=== PATIENT | female | born 1945 | race Two or more races ===

== ENCOUNTER 2017-09-13 11:18 | Inpatient (IN) | payer MEDICARE, MEDICAID ==
[~2017-09-13] VITALS: Ht 134.6 cm; Wt 61.2 kg
[2017-09-13] MEDS ORDERED: SODIUM CHLORIDE 0.9% 250 ML IV ONE (11:45)
[2017-09-13 12:40] LABS: CHLORIDE 98 mEq/L (98-107)
[2017-09-13 12:42] LABS: INR 1.4; PROTHROMBIN TIME 14.8 sec (9.4-11.6)
[2017-09-13 12:43] LABS: BASOPHILS % 0.2 % (0.0-2.0); EOSINOPHILS % 0.1 % (0.0-5.0); HEMOGLOBIN. 9.9 g/dL (12.0-16.0); LYMPHOCYTES % 10.4 % (20.0-50.0); MEAN CORPUSCULAR VOLUME 97.3 fL (81.0-99.0); MEAN PLATELET VOLUME 8.5 fl (7.4-10.4); MONOCYTES % 3.9 % (2.0-8.0); NEUTROPHILS % 85.4 % (40.0-76.0); PLATELET 193 x1000/uL (130-400); RED BLOOD CELL COUNT 3.09 mill/uL (4.2-5.4); RED CELL DISTRIBUTION WIDTH 18.2 % (11.6-14.6)
[2017-09-13] MEDS ORDERED: ACETAMINOPHEN WITH CODEINE 300/30MG TABLET PO ONE (13:45)
[2017-09-13] MEDS: SODIUM CHLORIDE 0.45% 1,000 ML IV SCH ×2 (16:08→18:26)
[2017-09-13 16:40] VITALS: BP 83/50
[2017-09-13 16:55] VITALS: BP 83/50
[2017-09-13] MEDS ORDERED: CLONIDINE 0.1MG TABLET PO PRN (17:45)
[2017-09-13] MEDS ORDERED: ACETAMINOPHEN 650MG SUPP PR PRN (17:45)
[2017-09-13] MEDS ORDERED: ACETAMINOPHEN 650MG/20.3ML UDC GT PRN (17:45)
[2017-09-13] MEDS ORDERED: DIPHENHYDRAMINE 50MG/ML VIAL IV PRN (17:45)
[2017-09-13] MEDS ORDERED: GUAIFENESIN 200MG/10ML SUGAR FREE UDC PO PRN (17:45)
[2017-09-13] MEDS ORDERED: IPRATROPIUM/ALBUTEROL 0.5-3(2.5)MG/3ML NEB INH PRN (17:45)
[2017-09-13] MEDS ORDERED: MAGNESIUM/ALUMINUM HYDROXIDE/SIMETHICONE 30ML UDC PO PRN (17:45)
[2017-09-13] MEDS: ENOXAPARIN 30MG/0.3ML SYR SUBCUT SCH (18:22)
[2017-09-13 20:00] VITALS: BP 103/43
[2017-09-13] MEDS: BLOOD SUGAR DIAGNOSTIC STRIP TEST SCH (21:00)
[2017-09-13] MEDS ORDERED: NA PHOS,M-B/NA PHOS,DI-BA ENEMA 118ML PR PRN (21:00)
[2017-09-13] MEDS ORDERED: DEXTROSE 50% WATER 50ML SYRINGE IV PRN (21:00)
[2017-09-13] MEDS: SODIUM CHLORIDE 0.9% INJ 3ML FLUSH IVF SCH (22:03)
[2017-09-13] MEDS: INSULIN LISPRO 100 UNITS/ML SUBCUT SCH (22:29)
[2017-09-13] MEDS ORDERED: ALBUMIN HUMAN 25GM/100ML (25%) IV NR (22:30)
[2017-09-14] VITALS: BP 114/43
[2017-09-14] MEDS ORDERED: VANCOMYCIN 1 G PREMIX 200 ML IV SCH
[2017-09-14] MEDS: PIPERACILLIN/TAZ 2.25G PREMIX 50 ML IV SCH ×4 (00:05→23:57)
[2017-09-14] MEDS: ACETAMINOPHEN 325MG TABLET PO PRN ×3 (00:35→23:57)
[2017-09-14 01:52] LABS: CREATINE KINASE MB FRACTION 1.2 ng/mL (0.5-3.6)
[2017-09-14 04:00] VITALS: BP_SYST 100; BP_SYST 116; BP_DIAS 43; BP_DIAS 56
[2017-09-14] MEDS: SODIUM CHLORIDE 0.9% INJ 3ML FLUSH IVF SCH ×3 (05:46→21:21)
[2017-09-14] MEDS: INSULIN LISPRO 100 UNITS/ML SUBCUT SCH ×4 (07:47→21:00)
[2017-09-14] MEDS: BLOOD SUGAR DIAGNOSTIC STRIP TEST SCH ×4 (07:47→21:21)
[2017-09-14 07:49] LABS: BASOPHILS % 0.4 % (0.0-2.0); EOSINOPHILS % 0.3 % (0.0-5.0); HEMATOCRIT. 27.1 % (36.0-48.0); HEMOGLOBIN. 9.1 g/dL (12.0-16.0); LYMPHOCYTES % 17.1 % (20.0-50.0); MEAN CORPUSCULAR HEMOGLOBIN 32.5 pg (28.0-32.0); MEAN PLATELET VOLUME 8.5 fl (7.4-10.4); MONOCYTES % 3.9 % (2.0-8.0); NEUTROPHILS % 78.3 % (40.0-76.0); PLATELET 203 x1000/uL (130-400); RED BLOOD CELL COUNT 2.79 mill/uL (4.2-5.4); RED CELL DISTRIBUTION WIDTH 18.3 % (11.6-14.6)
[2017-09-14 08:00] VITALS: BP 162/43
[2017-09-14 12:00] VITALS: BP 110/77
[2017-09-14 12:02] LABS: CHLORIDE 98 mEq/L (98-107)
[2017-09-14 12:12] LABS: CREATINE KINASE MB FRACTION 1.3 ng/mL (0.5-3.6)
[2017-09-14 12:15] LABS: LDL CHOLESTEROL 25 mg/dL (5-100)
[2017-09-14 12:16] LABS: CREATINE KINASE 23 IU/L (26-192)
[2017-09-14 12:17] LABS: HDL CHOLESTEROL 20 mg/dL (40-59)
[2017-09-14 16:00] VITALS: BP 113/56
[2017-09-14] MEDS: ENOXAPARIN 30MG/0.3ML SYR SUBCUT SCH (17:48)
[2017-09-14] MEDS: IPRATROPIUM/ALBUTEROL 0.5-3(2.5)MG/3ML NEB HHN SCH (19:45)
[2017-09-14 20:00] VITALS: BP 97/47
[2017-09-15] VITALS (7 sets, daily range): BP systolic 98–112; BP diastolic 46–57
[2017-09-15] MEDS: IPRATROPIUM/ALBUTEROL 0.5-3(2.5)MG/3ML NEB HHN SCH ×4 (00:57→20:34)
[2017-09-15 03:17] LABS: BASOPHILS % 0.5 % (0.0-2.0); EOSINOPHILS % 0.3 % (0.0-5.0); HEMATOCRIT. 27.4 % (36.0-48.0); HEMOGLOBIN. 9.2 g/dL (12.0-16.0); LYMPHOCYTES % 13.4 % (20.0-50.0); MEAN CORPUSCULAR HEMOGLOBIN 32.2 pg (28.0-32.0); MEAN CORPUSCULAR VOLUME 95.5 fL (81.0-99.0); MEAN PLATELET VOLUME 8.1 fl (7.4-10.4); MONOCYTES % 3.4 % (2.0-8.0); NEUTROPHILS % 82.4 % (40.0-76.0); PLATELET 211 x1000/uL (130-400); RED BLOOD CELL COUNT 2.87 mill/uL (4.2-5.4); RED CELL DISTRIBUTION WIDTH 17.8 % (11.6-14.6)
[2017-09-15] MEDS: SODIUM CHLORIDE 0.9% INJ 3ML FLUSH IVF SCH ×3 (05:17→21:38)
[2017-09-15] MEDS: BLOOD SUGAR DIAGNOSTIC STRIP TEST SCH ×4 (05:17→21:23)
[2017-09-15] MEDS: INSULIN LISPRO 100 UNITS/ML SUBCUT SCH ×4 (08:10→21:38)
[2017-09-15] MEDS: PIPERACILLIN/TAZ 2.25G PREMIX 50 ML IV SCH ×2 (09:22→17:44)
[2017-09-15 11:18] LABS: BG BASE EXCESS 2.1 mmol/L (-2.0-2.0); BG CARBOXYHEMOGLOBIN 0.6 % (0.5-1.5); BG DEOXYHEMOGLOBIN 7.2 % (0.0-5.0); BG FRACTION INSPIRED OXYGEN 21; BG HCO3 ACT 26.9 mmol/L (22.0-26.0); BG METHEMOGLOBIN 0.3 % (0.0-1.5); BG OXYGEN SATURATION 92.7 % (92.0-98.5); BG OXYHEMOGLOBIN 91.9 % (94.0-97.0); BG PCO2 42.6 mmHg (35.0-45.0); BG PH 7.418 (7.350-7.450); BG PO2 68.2 mmHg (75.0-100.0); BG SAMPLE SITE RIGHT BRACHIAL; BG TOTAL HEMOGLOBIN 10.7 g/dL (12.0-18.0); BG VENT MODE ROOM AIR
[2017-09-15] MEDS: DOCUSATE SODIUM 100MG CAPSULE PO PRN (11:43)
[2017-09-15] MEDS ORDERED: CALCIUM CHLORIDE 1,000 MG in DEXT 5% WATER 90 ML IV NR (13:30)
[2017-09-15 13:49] LABS: PHOSPHORUS 1.6 mg/dL (2.5-4.9)
[2017-09-15] MEDS ORDERED: VANCOMYCIN 750 MG PREMIX 150 ML IV NR (21:30)
[2017-09-16] VITALS (7 sets, daily range): BP systolic 92–122; BP diastolic 50–60
[2017-09-16] MEDS: PIPERACILLIN/TAZ 2.25G PREMIX 50 ML IV SCH ×2 (00:43→12:29)
[2017-09-16] MEDS: IPRATROPIUM/ALBUTEROL 0.5-3(2.5)MG/3ML NEB HHN SCH ×4 (00:50→20:11)
[2017-09-16] MEDS: SODIUM CHLORIDE 0.9% INJ 3ML FLUSH IVF SCH ×3 (06:00→20:48)
[2017-09-16 06:18] LABS: BASOPHILS % 0.3 % (0.0-2.0); EOSINOPHILS % 0.1 % (0.0-5.0); HEMATOCRIT. 27.5 % (36.0-48.0); HEMOGLOBIN. 9.3 g/dL (12.0-16.0); LYMPHOCYTES % 10.3 % (20.0-50.0); MEAN CORPUSCULAR HEMOGLOBIN 32.4 pg (28.0-32.0); MEAN CORPUSCULAR VOLUME 96.2 fL (81.0-99.0); MEAN PLATELET VOLUME 8.3 fl (7.4-10.4); MONOCYTES % 3.2 % (2.0-8.0); NEUTROPHILS % 86.1 % (40.0-76.0); PLATELET 221 x1000/uL (130-400); RED BLOOD CELL COUNT 2.86 mill/uL (4.2-5.4); RED CELL DISTRIBUTION WIDTH 18.5 % (11.6-14.6)
[2017-09-16] MEDS: BLOOD SUGAR DIAGNOSTIC STRIP TEST SCH ×4 (06:30→20:47)
[2017-09-16] MEDS: INSULIN LISPRO 100 UNITS/ML SUBCUT SCH ×4 (08:09→20:46)
[2017-09-16] MEDS: DOCUSATE SODIUM 100MG CAPSULE PO PRN (12:29)
[2017-09-16] MEDS: ONDANSETRON 4MG ODT PO PRN (12:29)
[2017-09-16] MEDS ORDERED: VANCOMYCIN 500 MG PREMIX 100 ML IV SCH (21:00)
[2017-09-17] VITALS: BP 114/56
[2017-09-17] MEDS: IPRATROPIUM/ALBUTEROL 0.5-3(2.5)MG/3ML NEB HHN SCH ×4 (01:47→20:02)
[2017-09-17 04:00] VITALS: BP 114/58
[2017-09-17] MEDS: SODIUM CHLORIDE 0.9% INJ 3ML FLUSH IVF SCH ×3 (06:34→21:59)
[2017-09-17] MEDS: BLOOD SUGAR DIAGNOSTIC STRIP TEST SCH ×4 (07:30→20:52)
[2017-09-17] MEDS: INSULIN LISPRO 100 UNITS/ML SUBCUT SCH ×4 (07:40→20:52)
[2017-09-17 08:00] VITALS: BP 132/65
[2017-09-17 12:00] VITALS: BP 128/66
[2017-09-17] MEDS ORDERED: VANC1PLA10 IV (15:34)
[2017-09-17 16:00] VITALS: BP 118/70
[2017-09-17] MEDS: ONDANSETRON 4MG ODT PO PRN (20:26)
[2017-09-17] MEDS ORDERED: ONDANSETRON HCL 4MG/2ML VIAL IV PRN (20:30)
[2017-09-17] MEDS ORDERED: ONDANSETRON HCL 4MG/2ML VIAL IV NR (20:30)
[2017-09-17] MEDS ORDERED: METOCLOPRAMIDE HCL 10MG/2ML VIAL IV PRN (20:30)
[2017-09-17 20:43] VITALS: BP 101/40
[2017-09-17 23:37] LABS: HEMATOCRIT. 26.2 % (36.0-48.0); HEMOGLOBIN. 8.8 g/dL (12.0-16.0); MEAN CORPUSCULAR HEMOGLOBIN 32.7 pg (28.0-32.0); PLATELET 164 x1000/uL (130-400); RED CELL DISTRIBUTION WIDTH 18.5 % (11.6-14.6)
[2017-09-17 23:48] LABS: INR 1.3; PROTHROMBIN TIME 13.4 sec (9.1-11.1)
[2017-09-17 23:53] LABS: CHLORIDE 103 mEq/L (98-107)
[2017-09-18 00:20] VITALS: BP 102/39
[2017-09-18] MEDS: IPRATROPIUM/ALBUTEROL 0.5-3(2.5)MG/3ML NEB HHN SCH ×4 (01:51→20:18)
[2017-09-18 02:51] LABS: PLATELET ESTIMATE NORMAL
[2017-09-18 04:00] VITALS: BP 128/99
[2017-09-18] MEDS: SODIUM CHLORIDE 0.9% INJ 3ML FLUSH IVF SCH ×3 (05:32→21:04)
[2017-09-18 06:42] LABS: HEMATOCRIT. 26.7 % (36.0-48.0); MEAN CORPUSCULAR HEMOGLOBIN 32.7 pg (28.0-32.0); MEAN CORPUSCULAR VOLUME 97.5 fL (81.0-99.0); MEAN PLATELET VOLUME 8.7 fl (7.4-10.4); PLATELET 189 x1000/uL (130-400); RED BLOOD CELL COUNT 2.74 mill/uL (4.2-5.4)
[2017-09-18] MEDS: BLOOD SUGAR DIAGNOSTIC STRIP TEST SCH ×4 (06:48→21:02)
[2017-09-18] MEDS: INSULIN LISPRO 100 UNITS/ML SUBCUT SCH ×4 (07:53→21:00)
[2017-09-18 08:00] VITALS: BP 120/53
[2017-09-18] MEDS: DOCUSATE SODIUM 100MG CAPSULE PO PRN (08:33)
[2017-09-18 12:00] VITALS: BP 113/56
[2017-09-18 13:53] LABS: PLATELET ESTIMATE NORMAL
[2017-09-18] MEDS ORDERED: VANCOMYCIN 500 MG PREMIX 100 ML IV SCH (14:00)
[2017-09-18 16:00] VITALS: BP 93/47
[2017-09-18 20:00] VITALS: BP 104/55
[2017-09-19] VITALS: BP 110/53
[2017-09-19] MEDS: IPRATROPIUM/ALBUTEROL 0.5-3(2.5)MG/3ML NEB HHN SCH ×3 (01:51→15:38)
[2017-09-19 04:00] VITALS: BP 95/51
[2017-09-19] MEDS: SODIUM CHLORIDE 0.9% INJ 3ML FLUSH IVF SCH ×3 (05:22→21:30)
[2017-09-19] MEDS: BLOOD SUGAR DIAGNOSTIC STRIP TEST SCH ×4 (06:48→21:28)
[2017-09-19 07:16] LABS: BASOPHILS % 0.4 % (0.0-2.0); HEMATOCRIT. 23.4 % (36.0-48.0); HEMOGLOBIN. 7.8 g/dL (12.0-16.0); LYMPHOCYTES % 8.4 % (20.0-50.0); MEAN CORPUSCULAR HEMOGLOBIN 32.2 pg (28.0-32.0); MEAN CORPUSCULAR VOLUME 96.6 fL (81.0-99.0); MEAN PLATELET VOLUME 8.4 fl (7.4-10.4); MONOCYTES % 3.1 % (2.0-8.0); NEUTROPHILS % 88.1 % (40.0-76.0); PLATELET 214 x1000/uL (130-400); RED BLOOD CELL COUNT 2.43 mill/uL (4.2-5.4); RED CELL DISTRIBUTION WIDTH 18.6 % (11.6-14.6)
[2017-09-19 08:00] VITALS: BP 116/61
[2017-09-19] MEDS: INSULIN LISPRO 100 UNITS/ML SUBCUT SCH ×4 (08:10→21:29)
[2017-09-19] MEDS: DOCUSATE SODIUM 100MG CAPSULE PO PRN (08:37)
[2017-09-19] MEDS: ACETAMINOPHEN 325MG TABLET PO PRN (08:37)
[2017-09-19] MEDS ORDERED: EPOETIN ALFA 10000UNITS/ML VIAL SUBCUT NR (10:00)
[2017-09-19 10:45] LABS: HEMOGLOBIN 8.4 g/dL (12.0-16.0)
[2017-09-19 11:08] LABS: TOTAL IRON BINDING CAPACITY 90 ug/dL (250-450)
[2017-09-19 12:00] VITALS: BP 111/53
[2017-09-19 16:00] VITALS: BP 113/53
[2017-09-19 20:00] VITALS: BP 118/80
[2017-09-20] VITALS: BP 123/60
[2017-09-20 04:00] VITALS: BP 121/68
[2017-09-20] MEDS: SODIUM CHLORIDE 0.9% INJ 3ML FLUSH IVF SCH ×4 (05:12→21:52)
[2017-09-20] MEDS: BLOOD SUGAR DIAGNOSTIC STRIP TEST SCH ×4 (05:18→21:52)
[2017-09-20 06:44] LABS: HEMATOCRIT. 25.6 % (36.0-48.0); HEMOGLOBIN. 8.6 g/dL (12.0-16.0); MEAN CORPUSCULAR HEMOGLOBIN 32.9 pg (28.0-32.0); MEAN CORPUSCULAR VOLUME 98.4 fL (81.0-99.0); PLATELET 229 x1000/uL (130-400); RED CELL DISTRIBUTION WIDTH 19.3 % (11.6-14.6)
[2017-09-20 08:00] VITALS: BP_SYST 104; BP_SYST 160; BP_DIAS 56; BP_DIAS 78
[2017-09-20] MEDS: INSULIN LISPRO 100 UNITS/ML SUBCUT SCH ×4 (08:10→21:00)
[2017-09-20] MEDS ORDERED: VANCOMYCIN 1 G PREMIX 200 ML IV SCH (09:00)
[2017-09-20] MEDS: DOCUSATE SODIUM 100MG CAPSULE PO PRN (10:19)
[2017-09-20] MEDS: ACETAMINOPHEN 325MG TABLET PO PRN (10:20)
[2017-09-20 12:00] VITALS: BP 102/60
[2017-09-20] MEDS ORDERED: LACTULOSE 20G/30ML UDC PO NR (12:45)
[2017-09-20] MEDS ORDERED: BISACODYL 5MG TABLET PO PRN (12:45)
[2017-09-20] MEDS ORDERED: BISACODYL 5MG TABLET PO NR (12:45)
[2017-09-20 13:16] LABS: PLATELET ESTIMATE NORMAL
[2017-09-20 16:00] VITALS: BP 100/49
[2017-09-20 20:00] VITALS: BP 100/52
[2017-09-20] MEDS ORDERED: EPOETIN ALFA 10000UNITS/ML VIAL SUBCUT SCH (21:00)
[2017-09-21] VITALS: BP_SYST 103; BP_SYST 98; BP_DIAS 49; BP_DIAS 50
[2017-09-21 04:00] VITALS: BP 98/49
[2017-09-21] MEDS: BLOOD SUGAR DIAGNOSTIC STRIP TEST SCH ×2 (05:16→12:13)
[2017-09-21] MEDS: SODIUM CHLORIDE 0.9% INJ 3ML FLUSH IVF SCH ×2 (05:16→12:13)
[2017-09-21 07:45] LABS: BASOPHILS % 0.2 % (0.0-2.0); HEMATOCRIT. 25.2 % (36.0-48.0); HEMOGLOBIN. 8.5 g/dL (12.0-16.0); LYMPHOCYTES % 7.6 % (20.0-50.0); MEAN CORPUSCULAR HEMOGLOBIN 33.4 pg (28.0-32.0); MEAN CORPUSCULAR VOLUME 98.7 fL (81.0-99.0); MEAN PLATELET VOLUME 8.5 fl (7.4-10.4); MONOCYTES % 2.9 % (2.0-8.0); NEUTROPHILS % 89.3 % (40.0-76.0); PLATELET 214 x1000/uL (130-400); RED BLOOD CELL COUNT 2.55 mill/uL (4.2-5.4); RED CELL DISTRIBUTION WIDTH 19.4 % (11.6-14.6)
[2017-09-21 08:00] VITALS: BP 104/46
[2017-09-21] MEDS: INSULIN LISPRO 100 UNITS/ML SUBCUT SCH ×2 (08:10→12:13)
[2017-09-21] MEDS ORDERED: DOCUSATE SODIUM 250MG CAPSULE PO SCH (09:00)
[2017-09-21 12:00] VITALS: BP 99/47
[2017-09-21] MEDS ORDERED: VANCOMYCIN 1 G PREMIX 200 ML IV SCH (15:00)
[2017-09-21 16:00] VITALS: BP 103/46
[2017-09-21 16:55] VITALS: BP 100/65
== END 2017-09-21 16:55 | DRG 720 ==
LOC: ER 11:18 → 7WST 13:26 → EDBEDREQSVC 13:30 → EDBEDREQTM 13:30 → EDBEDREQ 13:30 → ENRESERV 15:47
PROVIDERS: ADMIT Family Medicine; ATTEND Family Medicine
PROC: 5A1D70Z Performance of Urinary Filtration, Intermittent, Less than 6 Hours Per Day (ICD-10-PCS; principal; 2017-09-14)
PROC: 5A1D70Z Performance of Urinary Filtration, Intermittent, Less than 6 Hours Per Day (ICD-10-PCS; 2017-09-15)
PROC: 5A1D70Z Performance of Urinary Filtration, Intermittent, Less than 6 Hours Per Day (ICD-10-PCS; 2017-09-16)
PROC: 5A1D70Z Performance of Urinary Filtration, Intermittent, Less than 6 Hours Per Day (ICD-10-PCS; 2017-09-20)
DX: A41.9 Sepsis, unspecified organism (principal); J96.00 Acute respiratory failure, unspecified whether with hypoxia or hypercapnia; E43 Unspecified severe protein-calorie malnutrition; I13.2 Hypertensive heart and chronic kidney disease with heart failure and with stage 5 chronic kidney disease, or end stage renal disease; N18.6 End stage renal disease; J18.1 Lobar pneumonia, unspecified organism; L89.150 Pressure ulcer of sacral region, unstageable; I27.20 Pulmonary hypertension, unspecified; F03.90 Unspecified dementia, unspecified severity, without behavioral disturbance, psychotic disturbance, mood disturbance, and anxiety; E11.22 Type 2 diabetes mellitus with diabetic chronic kidney disease; J44.0 Chronic obstructive pulmonary disease with (acute) lower respiratory infection; E78.5 Hyperlipidemia, unspecified; D63.8 Anemia in other chronic diseases classified elsewhere; L97.529 Non-pressure chronic ulcer of other part of left foot with unspecified severity; E11.621 Type 2 diabetes mellitus with foot ulcer; L97.429 Non-pressure chronic ulcer of left heel and midfoot with unspecified severity; I25.10 Atherosclerotic heart disease of native coronary artery without angina pectoris; I50.9 Heart failure, unspecified; K59.00 Constipation, unspecified; E11.69 Type 2 diabetes mellitus with other specified complication; E11.51 Type 2 diabetes mellitus with diabetic peripheral angiopathy without gangrene; J44.9 Chronic obstructive pulmonary disease, unspecified; R94.31 Abnormal electrocardiogram [ECG] [EKG]; M89.8X7 Other specified disorders of bone, ankle and foot; G90.8 Other disorders of autonomic nervous system; Z16.21 Resistance to vancomycin; I95.9 Hypotension, unspecified; Z22.322 Carrier or suspected carrier of Methicillin resistant Staphylococcus aureus; Z99.2 Dependence on renal dialysis; Z74.01 Bed confinement status; Z79.899 Other long term (current) drug therapy; Z89.422 Acquired absence of other left toe(s); Z68.33 Body mass index [BMI] 33.0-33.9, adult
CPT/HCPCS: 36415; 36600; 71045; 74018; 80048; 80053; 80061; 80202; 82270; 82330; 82375; 82550; 82553; 82805; 82962; 83540; 83550; 83735; 83970; 84100; 84134; 84484; 85014; 85018; 85025; 85610; 87040; 87070; 87077; 87205; 93005; 93306; 93923; 93970; 94640; 97110; 97163; 97530; 99285; C1893; J0885; J1650; J1815; J2543; J2765; J3370; J3490; J7030; J7050; J7060; J7620; P9047; Q0162

== ENCOUNTER 2017-10-15 12:34 | Inpatient (IN) | payer MEDICARE, MEDICAID ==
[~2017-10-15] VITALS: Ht 152.4 cm; Wt 54.9 kg
[~2017-10-15 12:34] MED LIST: VANC1PLA10 IV
[2017-10-15 14:18] LABS: BASOPHILS % 0.9 % (0.0-2.0); EOSINOPHILS % 0.1 % (0.0-5.0); HEMATOCRIT. 27.1 % (36.0-48.0); HEMOGLOBIN. 8.9 g/dL (12.0-16.0); LYMPHOCYTES % 12.9 % (20.0-50.0); MEAN CORPUSCULAR HEMOGLOBIN 33.2 pg (28.0-32.0); MEAN CORPUSCULAR VOLUME 101.2 fL (81.0-99.0); MEAN PLATELET VOLUME 7.7 fl (7.4-10.4); MONOCYTES % 4.5 % (2.0-8.0); NEUTROPHILS % 81.6 % (40.0-76.0); PLATELET 161 x1000/uL (130-400); RED BLOOD CELL COUNT 2.68 mill/uL (4.2-5.4); RED CELL DISTRIBUTION WIDTH 19.2 % (11.6-14.6)
[2017-10-15 14:24] LABS: CHLORIDE 98 mEq/L (98-107)
[2017-10-15 14:28] LABS: INR 1.5; PROTHROMBIN TIME 14.7 sec (9.1-11.1)
[2017-10-15] MEDS ORDERED: FUROSEMIDE 40MG/4ML VIAL IVP ONE (15:15)
[2017-10-15] MEDS ORDERED: LEVOFLOXACIN 750MG PREMIX 150 ML IV ONE (15:15)
[2017-10-15] MEDS ORDERED: SEVE800T8 PO (19:38)
[2017-10-15] MEDS ORDERED: DORZ10DR8 OP (19:38)
[2017-10-15] MEDS ORDERED: GLIP5TAB12 PO (19:38)
[2017-10-15] MEDS ORDERED: MONT10TA24 PO (19:38)
[2017-10-15] MEDS ORDERED: ASPI-1159 PO (19:38)
[2017-10-15] MEDS ORDERED: CIPR1VIA2 OP (19:38)
[2017-10-15] MEDS ORDERED: METO-539 PO (19:38)
[2017-10-15] MEDS ORDERED: ATOR10TA PO (19:38)
[2017-10-15] MEDS ORDERED: PRED10DR7 OP (19:38)
[2017-10-15] MEDS ORDERED: AMIO100T4 PO (19:38)
[2017-10-15] MEDS ORDERED: FAMO20TA8 PO (19:38)
[2017-10-15] MEDS ORDERED: NIFE20CA PO (19:38)
[2017-10-15] MEDS ORDERED: CLONIDINE 0.1MG TABLET PO PRN (19:45)
[2017-10-15] MEDS ORDERED: HYDROCODONE/ACETAMINOPHEN 5/325MG TABLET PO PRN (19:45)
[2017-10-15] MEDS ORDERED: IPRATROPIUM/ALBUTEROL 0.5-3(2.5)MG/3ML NEB HHN PRN (19:45)
[2017-10-15 19:59] VITALS: BP 105/62
[2017-10-15 20:00] VITALS: BP 105/62
[2017-10-15] MEDS: HEPARIN 5000 UNITS/ML VIAL SUBCUT SCH (21:00)
[2017-10-15] MEDS: FAMOTIDINE 20MG TABLET PO SCH (22:52)
[2017-10-15] MEDS: ATORVASTATIN CALCIUM 10MG TABLET PO SCH (22:52)
[2017-10-15] MEDS: MONTELUKAST SODIUM 10MG TABLET PO SCH (22:52)
[2017-10-16] VITALS (7 sets, daily range): BP systolic 94–118; BP diastolic 51–60
[2017-10-16 06:42] LABS: BASOPHILS % 0.4 % (0.0-2.0); EOSINOPHILS % 0.1 % (0.0-5.0); HEMOGLOBIN. 10.3 g/dL (12.0-16.0); MEAN CORPUSCULAR HEMOGLOBIN 32.9 pg (28.0-32.0); MEAN CORPUSCULAR VOLUME 102.3 fL (81.0-99.0); MEAN PLATELET VOLUME 8.4 fl (7.4-10.4); NEUTROPHILS % 86.5 % (40.0-76.0); PLATELET 151 x1000/uL (130-400); RED BLOOD CELL COUNT 3.13 mill/uL (4.2-5.4); RED CELL DISTRIBUTION WIDTH 19.6 % (11.6-14.6)
[2017-10-16] MEDS ORDERED: FLUOCINOLONE OP SCH (09:00)
[2017-10-16] MEDS ORDERED: VANCOMYCIN 1 G PREMIX 200 ML IV SCH (09:00)
[2017-10-16] MEDS ORDERED: CIPROFLOXACIN OP SCH (09:00)
[2017-10-16] MEDS ORDERED: [UNRECOGNIZED DRUG - OTHER] OP SCH (09:00)
[2017-10-16] MEDS: HEPARIN 5000 UNITS/ML VIAL SUBCUT SCH ×2 (10:00→20:02)
[2017-10-16] MEDS: SEVELAMER CARBONATE 800 MG TABLET PO SCH ×3 (10:00→18:10)
[2017-10-16] MEDS: PREDNISOLONE ACETATE 1% OPHTH DROPS 1ML BOTHEYE SCH ×3 (10:01→17:51)
[2017-10-16] MEDS: AMIODARONE HCL 200 MG TABLET PO SCH (10:01)
[2017-10-16] MEDS: DORZOLAMIDE 2% OPHTH 10 ML BOTTLE BOTHEYE SCH ×3 (10:02→17:51)
[2017-10-16] MEDS: ASPIRIN 81MG TABLET PO SCH (10:02)
[2017-10-16] MEDS ORDERED: LIDOCAINE HCL/PF 1% 2ML VIAL ONE (11:21)
[2017-10-16 12:41] LABS: BG CARBOXYHEMOGLOBIN 0.3 % (0.5-1.5); BG DEOXYHEMOGLOBIN 12.6 % (0.0-5.0); BG HCO3 ACT 29.4 mmol/L (22.0-26.0); BG METHEMOGLOBIN 0.3 % (0.0-1.5); BG OXYGEN SATURATION 87.3 % (92.0-98.5); BG OXYHEMOGLOBIN 86.8 % (94.0-97.0); BG PCO2 42.8 mmHg (35.0-45.0); BG PH 7.455 (7.350-7.450); BG PO2 52.9 mmHg (75.0-100.0); BG SAMPLE SITE RIGHT RADIAL; BG TOTAL HEMOGLOBIN 10.1 g/dL (12.0-18.0); BG VENT MODE ROOM AIR
[2017-10-16] MEDS: MIDODRINE HCL 5MG TABLET PO SCH ×2 (13:54→17:50)
[2017-10-16] MEDS: FAMOTIDINE 20MG TABLET PO SCH (20:01)
[2017-10-16] MEDS: ATORVASTATIN CALCIUM 10MG TABLET PO SCH (20:02)
[2017-10-16] MEDS: NYSTATIN POWDER 15GM TOP SCH (20:02)
[2017-10-16] MEDS: MONTELUKAST SODIUM 10MG TABLET PO SCH (20:02)
[2017-10-16] MEDS: ONDANSETRON HCL 4MG/2ML INJ IV PRN (20:07)
[2017-10-17] VITALS: BP_SYST 103; BP_SYST 94; BP_DIAS 46; BP_DIAS 52
[2017-10-17 04:00] VITALS: BP 94/50
[2017-10-17 07:24] LABS: BASOPHILS % 0.8 % (0.0-2.0); EOSINOPHILS % 0.6 % (0.0-5.0); HEMATOCRIT. 27.4 % (36.0-48.0); HEMOGLOBIN. 8.9 g/dL (12.0-16.0); LYMPHOCYTES % 15.5 % (20.0-50.0); MEAN CORPUSCULAR HEMOGLOBIN 33.1 pg (28.0-32.0); MEAN CORPUSCULAR VOLUME 102.1 fL (81.0-99.0); MEAN PLATELET VOLUME 8.5 fl (7.4-10.4); MONOCYTES % 3.9 % (2.0-8.0); NEUTROPHILS % 79.2 % (40.0-76.0); PLATELET 174 x1000/uL (130-400); RED BLOOD CELL COUNT 2.68 mill/uL (4.2-5.4); RED CELL DISTRIBUTION WIDTH 19.2 % (11.6-14.6)
[2017-10-17 08:00] VITALS: BP_SYST 103; BP_SYST 111; BP_DIAS 53; BP_DIAS 59
[2017-10-17 08:00] LABS: CREATINE KINASE MB FRACTION 4.6 ng/mL (0.5-3.6)
[2017-10-17] MEDS: SEVELAMER CARBONATE 800 MG TABLET PO SCH ×2 (08:06→13:33)
[2017-10-17] MEDS: ASPIRIN 81MG TABLET PO SCH (08:57)
[2017-10-17] MEDS: NYSTATIN POWDER 15GM TOP SCH ×2 (08:57→23:13)
[2017-10-17] MEDS: PREDNISOLONE ACETATE 1% OPHTH DROPS 1ML BOTHEYE SCH ×3 (08:58→17:50)
[2017-10-17] MEDS: AMIODARONE HCL 200 MG TABLET PO SCH (08:58)
[2017-10-17] MEDS: DORZOLAMIDE 2% OPHTH 10 ML BOTTLE BOTHEYE SCH ×3 (08:58→17:50)
[2017-10-17] MEDS: HEPARIN 5000 UNITS/ML VIAL SUBCUT SCH ×2 (08:59→23:13)
[2017-10-17] MEDS: MIDODRINE HCL 5MG TABLET PO SCH ×3 (09:50→17:50)
[2017-10-17 10:53] LABS: BG BASE EXCESS 5.9 mmol/L (-2.0-2.0); BG CARBOXYHEMOGLOBIN 0.3 % (0.5-1.5); BG DEOXYHEMOGLOBIN 5.3 % (0.0-5.0); BG FRACTION INSPIRED OXYGEN 28; BG HCO3 ACT 30.8 mmol/L (22.0-26.0); BG METHEMOGLOBIN 0.3 % (0.0-1.5); BG OXYGEN SATURATION 94.7 % (92.0-98.5); BG OXYHEMOGLOBIN 94.1 % (94.0-97.0); BG PCO2 46.5 mmHg (35.0-45.0); BG PH 7.439 (7.350-7.450); BG PO2 75.6 mmHg (75.0-100.0); BG SAMPLE SITE RIGHT BRACHIAL; BG VENT MODE NASAL CANNULA
[2017-10-17 12:50] LABS: AMMONIA 43 uMol/L (<32)
[2017-10-17] MEDS: LEVOFLOXACIN 250MG PREMIX 50 ML IV SCH (13:32)
[2017-10-17 16:00] VITALS: BP 113/59
[2017-10-17 20:00] VITALS: BP 99/37
[2017-10-17] MEDS: MONTELUKAST SODIUM 10MG TABLET PO SCH (23:13)
[2017-10-17] MEDS: FAMOTIDINE 20MG TABLET PO SCH (23:13)
[2017-10-17] MEDS: ATORVASTATIN CALCIUM 10MG TABLET PO SCH (23:13)
[2017-10-18] VITALS: BP 118/61
[2017-10-18 04:00] VITALS: BP_SYST 125; BP_SYST 130; BP_DIAS 63; BP_DIAS 76
[2017-10-18 07:44] LABS: BASOPHILS % 0.5 % (0.0-2.0); EOSINOPHILS % 0.1 % (0.0-5.0); HEMATOCRIT. 28.1 % (36.0-48.0); HEMOGLOBIN. 9.5 g/dL (12.0-16.0); LYMPHOCYTES % 10.6 % (20.0-50.0); MEAN CORPUSCULAR HEMOGLOBIN 34.7 pg (28.0-32.0); MEAN CORPUSCULAR VOLUME 102.3 fL (81.0-99.0); MEAN PLATELET VOLUME 8.6 fl (7.4-10.4); MONOCYTES % 3.7 % (2.0-8.0); NEUTROPHILS % 85.1 % (40.0-76.0); PLATELET 156 x1000/uL (130-400); RED BLOOD CELL COUNT 2.74 mill/uL (4.2-5.4); RED CELL DISTRIBUTION WIDTH 18.9 % (11.6-14.6)
[2017-10-18 08:00] VITALS: BP 146/83
[2017-10-18] MEDS ORDERED: VANCOMYCIN 1 G PREMIX 200 ML IV SCH (08:00)
[2017-10-18] MEDS: ASPIRIN 81MG TABLET PO SCH (08:58)
[2017-10-18] MEDS: HEPARIN 5000 UNITS/ML VIAL SUBCUT SCH ×2 (08:58→20:28)
[2017-10-18] MEDS: FAMOTIDINE 20MG TABLET PO SCH (08:58)
[2017-10-18] MEDS: MIDODRINE HCL 5MG TABLET PO SCH ×2 (08:59→16:00)
[2017-10-18] MEDS: DORZOLAMIDE 2% OPHTH 10 ML BOTTLE BOTHEYE SCH ×2 (09:05→13:00)
[2017-10-18] MEDS: AMIODARONE HCL 200 MG TABLET PO SCH (09:05)
[2017-10-18] MEDS: PREDNISOLONE ACETATE 1% OPHTH DROPS 1ML BOTHEYE SCH ×2 (09:05→13:00)
[2017-10-18] MEDS: NYSTATIN POWDER 15GM TOP SCH ×2 (09:10→20:32)
[2017-10-18 12:00] VITALS: BP 149/68
[2017-10-18 16:00] VITALS: BP 128/67
[2017-10-18] MEDS: LEVOTHYROXINE SODIUM 50MCG TABLET PO SCH (16:02)
[2017-10-18 20:01] VITALS: BP 144/70
[2017-10-18] MEDS: MONTELUKAST SODIUM 10MG TABLET PO SCH (20:29)
[2017-10-18] MEDS: ATORVASTATIN CALCIUM 10MG TABLET PO SCH (20:31)
[2017-10-19 02:28] VITALS: BP 129/64
[2017-10-19 04:00] VITALS: BP 121/59
[2017-10-19 06:44] LABS: CHLORIDE 99 mEq/L (98-107)
[2017-10-19 07:32] LABS: BASOPHILS % 0.6 % (0.0-2.0); EOSINOPHILS % 0.9 % (0.0-5.0); LYMPHOCYTES % 11.8 % (20.0-50.0); MEAN CORPUSCULAR HEMOGLOBIN 33.3 pg (28.0-32.0); MEAN CORPUSCULAR VOLUME 101.3 fL (81.0-99.0); MEAN PLATELET VOLUME 8.6 fl (7.4-10.4); MONOCYTES % 3.4 % (2.0-8.0); NEUTROPHILS % 83.3 % (40.0-76.0); PLATELET 103 x1000/uL (130-400); RED BLOOD CELL COUNT 2.26 mill/uL (4.2-5.4)
[2017-10-19 08:00] VITALS: BP 192/55
[2017-10-19 08:00] LABS: HEMOGLOBIN. 7.5 g/dL (12.0-16.0)
[2017-10-19 08:01] LABS: HEMATOCRIT. 22.9 % (36.0-48.0)
[2017-10-19] MEDS: LEVOTHYROXINE SODIUM 50MCG TABLET PO SCH (08:51)
[2017-10-19] MEDS: SEVELAMER CARBONATE 800 MG TABLET PO SCH ×5 (08:52→17:45)
[2017-10-19] MEDS: AMIODARONE HCL 200 MG TABLET PO SCH (08:53)
[2017-10-19] MEDS: MIDODRINE HCL 5MG TABLET PO SCH ×2 (08:55→09:02)
[2017-10-19] MEDS: DORZOLAMIDE 2% OPHTH 10 ML BOTTLE BOTHEYE SCH ×4 (08:59→17:46)
[2017-10-19] MEDS: PREDNISOLONE ACETATE 1% OPHTH DROPS 1ML BOTHEYE SCH ×3 (09:01→17:45)
[2017-10-19] MEDS: HEPARIN 5000 UNITS/ML VIAL SUBCUT SCH (09:03)
[2017-10-19] MEDS: NYSTATIN POWDER 15GM TOP SCH ×2 (09:05→21:01)
[2017-10-19] MEDS ORDERED: SODIUM BICARBONATE 4% (2.4MEQ) 5ML VIAL IV ONE (09:47)
[2017-10-19 10:42] LABS: HEMATOCRIT 25.3 % (36.0-48.0); HEMOGLOBIN 8.2 g/dL (12.0-16.0)
[2017-10-19 12:00] VITALS: BP 136/41
[2017-10-19] MEDS ORDERED: KCL 20MEQ/100ML PREMIX 100 ML IV SCH (12:00)
[2017-10-19] MEDS: AMLODIPINE 5MG TABLET PO SCH (13:45)
[2017-10-19] MEDS: LEVOFLOXACIN 250MG PREMIX 50 ML IV SCH (13:46)
[2017-10-19 16:00] VITALS: BP 128/45
[2017-10-19 20:00] VITALS: BP 115/52
[2017-10-19] MEDS: GUAIFENESIN 600MG ER TABLET PO SCH (21:00)
[2017-10-19] MEDS: MONTELUKAST SODIUM 10MG TABLET PO SCH (21:00)
[2017-10-19] MEDS: FAMOTIDINE 20MG TABLET PO SCH (21:01)
[2017-10-19] MEDS: ATORVASTATIN CALCIUM 10MG TABLET PO SCH (21:04)
[2017-10-19] MEDS: IPRATROPIUM/ALBUTEROL 0.5-3(2.5)MG/3ML NEB HHN SCH (21:17)
[2017-10-20] VITALS (7 sets, daily range): BP systolic 91–146; BP diastolic 30–62
[2017-10-20] MEDS: IPRATROPIUM/ALBUTEROL 0.5-3(2.5)MG/3ML NEB HHN SCH ×4 (02:51→21:02)
[2017-10-20 06:02] LABS: BASOPHILS % 0.5 % (0.0-2.0); EOSINOPHILS % 0.1 % (0.0-5.0); HEMATOCRIT. 25.2 % (36.0-48.0); HEMOGLOBIN. 8.3 g/dL (12.0-16.0); LYMPHOCYTES % 11.1 % (20.0-50.0); MEAN CORPUSCULAR HEMOGLOBIN 33.8 pg (28.0-32.0); MEAN CORPUSCULAR VOLUME 102.6 fL (81.0-99.0); MEAN PLATELET VOLUME 8.8 fl (7.4-10.4); NEUTROPHILS % 85.3 % (40.0-76.0); PLATELET 99 x1000/uL (130-400); RED BLOOD CELL COUNT 2.46 mill/uL (4.2-5.4); RED CELL DISTRIBUTION WIDTH 19.1 % (11.6-14.6)
[2017-10-20] MEDS: AMLODIPINE 5MG TABLET PO SCH (07:51)
[2017-10-20] MEDS: DORZOLAMIDE 2% OPHTH 10 ML BOTTLE BOTHEYE SCH ×3 (07:51→16:08)
[2017-10-20] MEDS: AMIODARONE HCL 200 MG TABLET PO SCH (07:52)
[2017-10-20] MEDS: SEVELAMER CARBONATE 800 MG TABLET PO SCH ×3 (08:02→17:21)
[2017-10-20] MEDS: LEVOTHYROXINE SODIUM 50MCG TABLET PO SCH (08:02)
[2017-10-20] MEDS: GUAIFENESIN 600MG ER TABLET PO SCH ×2 (08:02→20:13)
[2017-10-20] MEDS: PREDNISOLONE ACETATE 1% OPHTH DROPS 1ML BOTHEYE SCH ×3 (08:03→17:21)
[2017-10-20] MEDS: NYSTATIN POWDER 15GM TOP SCH ×2 (08:03→20:14)
[2017-10-20] MEDS: ATORVASTATIN CALCIUM 10MG TABLET PO SCH (20:13)
[2017-10-20] MEDS: MONTELUKAST SODIUM 10MG TABLET PO SCH (20:13)
[2017-10-20] MEDS: FAMOTIDINE 20MG TABLET PO SCH (20:13)
[2017-10-20] MEDS: EPOETIN ALFA 10000UNITS/ML VIAL SUBCUT SCH (22:21)
[2017-10-21] VITALS (13 sets, daily range): BP systolic 90–135; BP diastolic 32–93
[2017-10-21 06:45] LABS: HEMATOCRIT. 24.1 % (36.0-48.0); HEMOGLOBIN. 7.9 g/dL (12.0-16.0); MEAN CORPUSCULAR HEMOGLOBIN 33.5 pg (28.0-32.0); MEAN CORPUSCULAR VOLUME 102.6 fL (81.0-99.0); MEAN PLATELET VOLUME 9.1 fl (7.4-10.4); PLATELET 99 x1000/uL (130-400); RED BLOOD CELL COUNT 2.35 mill/uL (4.2-5.4); RED CELL DISTRIBUTION WIDTH 18.9 % (11.6-14.6)
[2017-10-21] MEDS: IPRATROPIUM/ALBUTEROL 0.5-3(2.5)MG/3ML NEB HHN SCH ×4 (07:32→21:40)
[2017-10-21] MEDS: LEVOTHYROXINE SODIUM 50MCG TABLET PO SCH (08:39)
[2017-10-21] MEDS: AMLODIPINE 5MG TABLET PO SCH (09:00)
[2017-10-21] MEDS: GUAIFENESIN 600MG ER TABLET PO SCH ×2 (09:37→22:03)
[2017-10-21] MEDS: SEVELAMER CARBONATE 800 MG TABLET PO SCH ×3 (09:37→20:00)
[2017-10-21] MEDS: AMIODARONE HCL 200 MG TABLET PO SCH (09:37)
[2017-10-21] MEDS: NYSTATIN POWDER 15GM TOP SCH ×2 (09:37→22:19)
[2017-10-21] MEDS: PREDNISOLONE ACETATE 1% OPHTH DROPS 1ML BOTHEYE SCH ×3 (09:39→17:02)
[2017-10-21] MEDS: DORZOLAMIDE 2% OPHTH 10 ML BOTTLE BOTHEYE SCH ×3 (09:39→17:02)
[2017-10-21 10:07] LABS: PLATELET ESTIMATE DECREASED
[2017-10-21 10:09] LABS: TOTAL IRON BINDING CAPACITY 107 ug/dL (250-450)
[2017-10-21] MEDS: LEVOFLOXACIN 250MG PREMIX 50 ML IV SCH (10:22)
[2017-10-21] MEDS: FAMOTIDINE 20MG TABLET PO SCH (22:02)
[2017-10-21] MEDS: ATORVASTATIN CALCIUM 10MG TABLET PO SCH (22:02)
[2017-10-21] MEDS: MONTELUKAST SODIUM 10MG TABLET PO SCH (22:03)
[2017-10-21] MEDS: ACETAMINOPHEN 325MG TABLET PO PRN (22:03)
[2017-10-21] MEDS: ONDANSETRON HCL 4MG/2ML INJ IV PRN (22:19)
[2017-10-22] VITALS (48 sets, daily range): BP systolic 81–139; BP diastolic 42–88
[2017-10-22] MEDS: IPRATROPIUM/ALBUTEROL 0.5-3(2.5)MG/3ML NEB HHN SCH ×4 (02:50→20:23)
[2017-10-22] MEDS: LEVOTHYROXINE SODIUM 50MCG TABLET PO SCH (07:40)
[2017-10-22 08:03] LABS: HEMATOCRIT. 29.3 % (36.0-48.0); HEMOGLOBIN. 9.7 g/dL (12.0-16.0); MEAN CORPUSCULAR HEMOGLOBIN 31.9 pg (28.0-32.0); MEAN CORPUSCULAR VOLUME 96.4 fL (81.0-99.0); MEAN PLATELET VOLUME 8.8 fl (7.4-10.4); PLATELET 123 x1000/uL (130-400); RED BLOOD CELL COUNT 3.04 mill/uL (4.2-5.4); RED CELL DISTRIBUTION WIDTH 22.1 % (11.6-14.6)
[2017-10-22] MEDS: SEVELAMER CARBONATE 800 MG TABLET PO SCH ×3 (08:10→17:52)
[2017-10-22] MEDS: GUAIFENESIN 600MG ER TABLET PO SCH ×2 (09:00→21:00)
[2017-10-22] MEDS: DORZOLAMIDE 2% OPHTH 10 ML BOTTLE BOTHEYE SCH ×3 (09:00→17:49)
[2017-10-22] MEDS: NYSTATIN POWDER 15GM TOP SCH ×2 (09:00→21:00)
[2017-10-22] MEDS: AMIODARONE HCL 200 MG TABLET PO SCH (09:00)
[2017-10-22] MEDS: PREDNISOLONE ACETATE 1% OPHTH DROPS 1ML BOTHEYE SCH ×3 (09:00→17:49)
[2017-10-22] MEDS ORDERED: LIDOCAINE HCL 1% 10 MG/ML 10ML VIAL ONE (10:41)
[2017-10-22] MEDS ORDERED: NOREPINEPHRINE 4 MG in DEXT 5% WATER 246 ML IV PRN (10:45)
[2017-10-22] MEDS ORDERED: ALBUMIN HUMAN 25GM/100ML (25%) IV NR (10:45)
[2017-10-22 10:46] LABS: PLATELET ESTIMATE SLIGHTLY DECREASED
[2017-10-22] MEDS ORDERED: VANCOMYCIN 1 G PREMIX 200 ML IV SCH (11:00)
[2017-10-22] MEDS ORDERED: ACETYLCYSTEINE 100MG/ML 10% VIAL 4ML INH SCH (17:00)
[2017-10-22 18:04] LABS: BG BASE EXCESS 1.9 mmol/L (-2.0-2.0); BG DEOXYHEMOGLOBIN 30.2 % (0.0-5.0); BG FRACTION INSPIRED OXYGEN 28; BG HCO3 ACT 27.1 mmol/L (22.0-26.0); BG METHEMOGLOBIN 0.3 % (0.0-1.5); BG OXYGEN SATURATION 69.4 % (92.0-98.5); BG OXYHEMOGLOBIN 68.5 % (94.0-97.0); BG PH 7.397 (7.350-7.450); BG PO2 34.9 mmHg (75.0-100.0); BG SAMPLE SITE RIGHT RADIAL; BG TOTAL HEMOGLOBIN 10.4 g/dL (12.0-18.0); BG VENT MODE NASAL CANNULA
[2017-10-22] MEDS ORDERED: VANCOMYCIN 1 G PREMIX 200 ML IV NR (19:00)
[2017-10-22 19:12] LABS: BG BASE EXCESS -0.4 mmol/L (-2.0-2.0); BG CARBOXYHEMOGLOBIN 0.6 % (0.5-1.5); BG DEOXYHEMOGLOBIN 4.8 % (0.0-5.0); BG FRACTION INSPIRED OXYGEN 60; BG OXYGEN SATURATION 95.2 % (92.0-98.5); BG OXYHEMOGLOBIN 94.6 % (94.0-97.0); BG PCO2 32.9 mmHg (35.0-45.0); BG PH 7.462 (7.350-7.450); BG PO2 76.6 mmHg (75.0-100.0); BG SAMPLE SITE RIGHT RADIAL; BG TOTAL HEMOGLOBIN 9.9 g/dL (12.0-18.0); BG VENT MODE MASK - BIPAP; BG VENT RATE 14 set
[2017-10-22] MEDS: ATORVASTATIN CALCIUM 10MG TABLET PO SCH (21:00)
[2017-10-22] MEDS: FAMOTIDINE 20MG TABLET PO SCH (22:20)
[2017-10-22] MEDS: MONTELUKAST SODIUM 10MG TABLET PO SCH (22:20)
[2017-10-22] MEDS: EPOETIN ALFA 10000UNITS/ML VIAL SUBCUT SCH (22:20)
[2017-10-23] VITALS (60 sets, daily range): BP systolic 84–157; BP diastolic 48–91
[2017-10-23] MEDS: IPRATROPIUM/ALBUTEROL 0.5-3(2.5)MG/3ML NEB HHN SCH (02:03)
[2017-10-23] MEDS: NOREPINEPHRINE 8 MG in DEXT 5% WATER 242 ML IV PRN (02:38)
[2017-10-23 05:03] LABS: BASOPHILS % 0.1 % (0.0-2.0); EOSINOPHILS % 0.3 % (0.0-5.0); HEMATOCRIT. 26.6 % (36.0-48.0); HEMOGLOBIN. 8.9 g/dL (12.0-16.0); LYMPHOCYTES % 9.2 % (20.0-50.0); MEAN CORPUSCULAR VOLUME 95.5 fL (81.0-99.0); MEAN PLATELET VOLUME 8.8 fl (7.4-10.4); MONOCYTES % 2.3 % (2.0-8.0); NEUTROPHILS % 88.1 % (40.0-76.0); PLATELET 115 x1000/uL (130-400); RED BLOOD CELL COUNT 2.78 mill/uL (4.2-5.4); RED CELL DISTRIBUTION WIDTH 21.1 % (11.6-14.6)
[2017-10-23] MEDS: LEVOTHYROXINE SODIUM 50MCG TABLET PO SCH (06:27)
[2017-10-23] MEDS: SEVELAMER CARBONATE 800 MG TABLET PO SCH ×3 (07:00→16:10)
[2017-10-23] MEDS: DORZOLAMIDE 2% OPHTH 10 ML BOTTLE BOTHEYE SCH ×3 (08:35→16:51)
[2017-10-23] MEDS: GUAIFENESIN 600MG ER TABLET PO SCH ×2 (08:35→21:00)
[2017-10-23] MEDS: PREDNISOLONE ACETATE 1% OPHTH DROPS 1ML BOTHEYE SCH ×3 (08:35→16:51)
[2017-10-23] MEDS: NYSTATIN POWDER 15GM TOP SCH ×2 (08:36→21:00)
[2017-10-23] MEDS: AMIODARONE HCL 200 MG TABLET PO SCH (08:36)
[2017-10-23 09:32] LABS: BG CARBOXYHEMOGLOBIN 0.9 % (0.5-1.5); BG DEOXYHEMOGLOBIN 8.8 % (0.0-5.0); BG FRACTION INSPIRED OXYGEN 32; BG HCO3 ACT 27.2 mmol/L (22.0-26.0); BG METHEMOGLOBIN 0.1 % (0.0-1.5); BG OXYGEN SATURATION 91.1 % (92.0-98.5); BG OXYHEMOGLOBIN 90.2 % (94.0-97.0); BG PCO2 40.2 mmHg (35.0-45.0); BG PH 7.448 (7.350-7.450); BG PO2 62.1 mmHg (75.0-100.0); BG SAMPLE SITE RIGHT RADIAL; BG TOTAL HEMOGLOBIN 10.1 g/dL (12.0-18.0); BG VENT MODE NASAL CANNULA
[2017-10-23] MEDS: LEVOFLOXACIN 250MG PREMIX 50 ML IV SCH (11:36)
[2017-10-23] MEDS ORDERED: SODIUM BICARBONATE 4% (2.4MEQ) 5ML VIAL IV ONE (13:39)
[2017-10-23] MEDS ORDERED: EPINEPHRINE 0.1MG/ML (1:10,000) 10ML SYR ONE (14:30)
[2017-10-23] MEDS ORDERED: VECURONIUM BROMIDE 10 MG/VIAL IV ONE (14:30)
[2017-10-23] MEDS ORDERED: NORMAL SALINE 0.9% 10 ML SYR ONE (14:30)
[2017-10-23] MEDS ORDERED: ETOMIDATE 2MG/ML 10ML VIAL IV ONE (14:30)
[2017-10-23] MEDS ORDERED: ATROPINE SULFATE 1MG/10ML SYR ONE (14:30)
[2017-10-23] MEDS ORDERED: SODIUM CHLORIDE 0.9% 500 ML IV NR (15:00)
[2017-10-23 15:04] LABS: BG BASE EXCESS -5.1 mmol/L (-2.0-2.0); BG CARBOXYHEMOGLOBIN 0.2 % (0.5-1.5); BG DEOXYHEMOGLOBIN 0.6 % (0.0-5.0); BG FRACTION INSPIRED OXYGEN 100; BG HCO3 ACT 20.6 mmol/L (22.0-26.0); BG METHEMOGLOBIN 0.2 % (0.0-1.5); BG OXYGEN SATURATION 99.4 % (92.0-98.5); BG PCO2 40.9 mmHg (35.0-45.0); BG PO2 258.9 mmHg (75.0-100.0); BG SAMPLE SITE RIGHT BRACHIAL; BG TIDAL VOLUME(mL) 450 mL; BG TOTAL HEMOGLOBIN 10.6 g/dL (12.0-18.0); BG VENT MODE VENT - A/C; BG VENT RATE 12 set
[2017-10-23] MEDS: ACETYLCYSTEINE 100MG/ML 10% VIAL 4ML INH SCH (15:55)
[2017-10-23] MEDS: IPRATROPIUM/ALBUTEROL 0.5-3(2.5)MG/3ML NEB HHN PRN ×2 (15:55→20:11)
[2017-10-23] MEDS: CEFTAZIDIME PENTAHYDRATE 1 G in DEXTROSE 5% WATER 50 ML IV SCH (16:49)
[2017-10-23] MEDS: PROPOFOL 10MG/ML 100ML 100 ML IV PRN (19:00)
[2017-10-23] MEDS: ATORVASTATIN CALCIUM 10MG TABLET PO SCH (21:00)
[2017-10-23] MEDS: MONTELUKAST SODIUM 10MG TABLET PO SCH (21:49)
[2017-10-23] MEDS: FAMOTIDINE 20MG TABLET PO SCH (21:49)
[2017-10-24] VITALS (95 sets, daily range): BP systolic 81–148; BP diastolic 45–95
[2017-10-24] MEDS: IPRATROPIUM/ALBUTEROL 0.5-3(2.5)MG/3ML NEB HHN PRN ×3 (00:31→15:37)
[2017-10-24] MEDS: ACETYLCYSTEINE 100MG/ML 10% VIAL 4ML INH SCH ×3 (00:31→15:38)
[2017-10-24] MEDS: NOREPINEPHRINE 8 MG in DEXT 5% WATER 242 ML IV PRN (02:23)
[2017-10-24] MEDS: PROPOFOL 10MG/ML 100ML 100 ML IV PRN ×2 (04:24→19:36)
[2017-10-24 05:45] LABS: HEMATOCRIT. 29.5 % (36.0-48.0); HEMOGLOBIN. 9.8 g/dL (12.0-16.0); MEAN CORPUSCULAR HEMOGLOBIN 32.4 pg (28.0-32.0); MEAN CORPUSCULAR VOLUME 97.3 fL (81.0-99.0); PLATELET 112 x1000/uL (130-400); RED BLOOD CELL COUNT 3.04 mill/uL (4.2-5.4); RED CELL DISTRIBUTION WIDTH 20.3 % (11.6-14.6)
[2017-10-24] MEDS: LEVOTHYROXINE SODIUM 50MCG TABLET PO SCH (06:21)
[2017-10-24] MEDS: SEVELAMER CARBONATE 800 MG TABLET PO SCH ×3 (07:00→16:28)
[2017-10-24] MEDS: GUAIFENESIN 600MG ER TABLET PO SCH ×2 (08:09→21:00)
[2017-10-24] MEDS: PREDNISOLONE ACETATE 1% OPHTH DROPS 1ML BOTHEYE SCH ×3 (10:24→18:18)
[2017-10-24] MEDS: DORZOLAMIDE 2% OPHTH 10 ML BOTTLE BOTHEYE SCH ×3 (10:24→18:18)
[2017-10-24] MEDS: AMIODARONE HCL 200 MG TABLET PO SCH (10:24)
[2017-10-24] MEDS: NYSTATIN POWDER 15GM TOP SCH ×2 (10:25→21:00)
[2017-10-24 10:26] LABS: PLATELET ESTIMATE DECREASED
[2017-10-24] MEDS: CEFTAZIDIME PENTAHYDRATE 1 G in DEXTROSE 5% WATER 50 ML IV SCH (16:24)
[2017-10-24] MEDS: ATORVASTATIN CALCIUM 10MG TABLET PO SCH (21:00)
[2017-10-24] MEDS: MONTELUKAST SODIUM 10MG TABLET PO SCH (23:09)
[2017-10-24] MEDS: FAMOTIDINE 20MG TABLET PO SCH (23:09)
[2017-10-25] VITALS (97 sets, daily range): BP systolic 69–141; BP diastolic 44–78
[2017-10-25] MEDS: ACETYLCYSTEINE 100MG/ML 10% VIAL 4ML INH SCH ×2 (00:24→08:03)
[2017-10-25] MEDS: IPRATROPIUM/ALBUTEROL 0.5-3(2.5)MG/3ML NEB HHN PRN ×2 (00:24→08:03)
[2017-10-25] MEDS: NOREPINEPHRINE 8 MG in DEXT 5% WATER 242 ML IV PRN (02:50)
[2017-10-25 06:17] LABS: HEMOGLOBIN. 9.8 g/dL (12.0-16.0); MEAN CORPUSCULAR HEMOGLOBIN 32.3 pg (28.0-32.0); MEAN CORPUSCULAR VOLUME 96.1 fL (81.0-99.0); MEAN PLATELET VOLUME 8.6 fl (7.4-10.4); PLATELET 87 x1000/uL (130-400); RED BLOOD CELL COUNT 3.02 mill/uL (4.2-5.4); RED CELL DISTRIBUTION WIDTH 19.5 % (11.6-14.6)
[2017-10-25] MEDS: PROPOFOL 10MG/ML 100ML 100 ML IV PRN (06:34)
[2017-10-25] MEDS: LEVOTHYROXINE SODIUM 50MCG TABLET PO SCH (06:34)
[2017-10-25] MEDS: SEVELAMER CARBONATE 800 MG TABLET PO SCH ×3 (07:00→17:00)
[2017-10-25] MEDS: GUAIFENESIN 600MG ER TABLET PO SCH ×2 (10:01→22:21)
[2017-10-25] MEDS: DORZOLAMIDE 2% OPHTH 10 ML BOTTLE BOTHEYE SCH ×3 (10:02→18:40)
[2017-10-25] MEDS: NYSTATIN POWDER 15GM TOP SCH ×2 (10:02→22:24)
[2017-10-25] MEDS: AMIODARONE HCL 200 MG TABLET PO SCH (10:02)
[2017-10-25] MEDS: PREDNISOLONE ACETATE 1% OPHTH DROPS 1ML BOTHEYE SCH ×3 (10:04→18:40)
[2017-10-25] MEDS: BLOOD SUGAR DIAGNOSTIC STRIP TEST SCH ×2 (11:50→18:27)
[2017-10-25 12:09] LABS: NUCLEATED RED BLOOD CELLS 1 /100 WBC; PLATELET ESTIMATE DECREASED
[2017-10-25] MEDS: MIDAZOLAM HCL 100 MG in DEXT 5% WATER 80 ML IV PRN (12:30)
[2017-10-25] MEDS: FENTANYL CITRATE/PF 500 MCG in SODIUM CHLORIDE 0.9% 40 ML IV PRN (12:32)
[2017-10-25] MEDS: INSULIN LISPRO 100 UNITS/ML SUBCUT SCH ×2 (12:34→18:39)
[2017-10-25] MEDS ORDERED: VANCOMYCIN 750 MG PREMIX 150 ML IV NR (15:00)
[2017-10-25] MEDS: CEFTAZIDIME PENTAHYDRATE 1 G in DEXTROSE 5% WATER 50 ML IV SCH (15:23)
[2017-10-25] MEDS: MONTELUKAST SODIUM 10MG TABLET PO SCH (22:20)
[2017-10-25] MEDS: FAMOTIDINE 20MG TABLET PO SCH (22:21)
[2017-10-25] MEDS: EPOETIN ALFA 10000UNITS/ML VIAL SUBCUT SCH (22:21)
[2017-10-25] MEDS: ATORVASTATIN CALCIUM 10MG TABLET PO SCH (22:21)
[2017-10-26] VITALS (78 sets, daily range): BP systolic 87–143; BP diastolic 50–70
[2017-10-26] MEDS: BLOOD SUGAR DIAGNOSTIC STRIP TEST SCH ×4 (00:15→17:10)
[2017-10-26] MEDS: INSULIN LISPRO 100 UNITS/ML SUBCUT SCH ×5 (00:19→21:00)
[2017-10-26] MEDS: ACETYLCYSTEINE 100MG/ML 10% VIAL 4ML INH SCH ×4 (00:40→20:37)
[2017-10-26] MEDS: IPRATROPIUM/ALBUTEROL 0.5-3(2.5)MG/3ML NEB HHN PRN ×2 (00:40→08:24)
[2017-10-26] MEDS: MIDAZOLAM HCL 100 MG in DEXT 5% WATER 80 ML IV PRN (01:40)
[2017-10-26] MEDS: FENTANYL CITRATE/PF 500 MCG in SODIUM CHLORIDE 0.9% 40 ML IV PRN (01:41)
[2017-10-26] MEDS: NOREPINEPHRINE 8 MG in DEXT 5% WATER 242 ML IV PRN (03:08)
[2017-10-26] MEDS: LEVOTHYROXINE SODIUM 50MCG TABLET PO SCH (06:05)
[2017-10-26 06:28] LABS: HEMATOCRIT. 27.6 % (36.0-48.0); HEMOGLOBIN. 9.3 g/dL (12.0-16.0); MEAN CORPUSCULAR HEMOGLOBIN 32.6 pg (28.0-32.0); MEAN CORPUSCULAR VOLUME 97.2 fL (81.0-99.0); MEAN PLATELET VOLUME 8.7 fl (7.4-10.4); PLATELET 74 x1000/uL (130-400); RED BLOOD CELL COUNT 2.84 mill/uL (4.2-5.4)
[2017-10-26 08:34] LABS: BG BASE EXCESS 4.1 mmol/L (-2.0-2.0); BG CARBOXYHEMOGLOBIN 0.1 % (0.5-1.5); BG DEOXYHEMOGLOBIN 1.5 % (0.0-5.0); BG FRACTION INSPIRED OXYGEN 40; BG HCO3 ACT 26.6 mmol/L (22.0-26.0); BG METHEMOGLOBIN 0.1 % (0.0-1.5); BG OXYGEN SATURATION 98.5 % (92.0-98.5); BG OXYHEMOGLOBIN 98.3 % (94.0-97.0); BG PCO2 32.3 mmHg (35.0-45.0); BG PH 7.534 (7.350-7.450); BG SAMPLE SITE RIGHT RADIAL; BG TIDAL VOLUME(mL) 450 mL; BG TOTAL HEMOGLOBIN 9.8 g/dL (12.0-18.0); BG VENT MODE VENT - A/C; BG VENT RATE 12 set
[2017-10-26] MEDS: SEVELAMER CARBONATE 800 MG TABLET PO SCH ×3 (08:35→17:22)
[2017-10-26] MEDS: NYSTATIN POWDER 15GM TOP SCH ×2 (08:36→20:30)
[2017-10-26] MEDS: PREDNISOLONE ACETATE 1% OPHTH DROPS 1ML BOTHEYE SCH ×3 (08:36→17:22)
[2017-10-26] MEDS: AMIODARONE HCL 200 MG TABLET PO SCH (08:36)
[2017-10-26] MEDS: DORZOLAMIDE 2% OPHTH 10 ML BOTTLE BOTHEYE SCH ×3 (08:36→17:22)
[2017-10-26] MEDS: GUAIFENESIN 600MG ER TABLET PO SCH ×2 (08:36→20:29)
[2017-10-26 08:43] LABS: PLATELET ESTIMATE DECREASED
[2017-10-26] MEDS: IPRATROPIUM/ALBUTEROL 0.5-3(2.5)MG/3ML NEB HHN SCH ×2 (14:30→20:36)
[2017-10-26] MEDS: CEFTAZIDIME PENTAHYDRATE 1 G in DEXTROSE 5% WATER 50 ML IV SCH (14:58)
[2017-10-26] MEDS: ATORVASTATIN CALCIUM 10MG TABLET PO SCH (20:29)
[2017-10-26] MEDS: MONTELUKAST SODIUM 10MG TABLET PO SCH (20:29)
[2017-10-26] MEDS: FAMOTIDINE 20MG TABLET PO SCH (20:29)
[2017-10-27] VITALS (68 sets, daily range): BP systolic 69–161; BP diastolic 40–94
[2017-10-27] MEDS: IPRATROPIUM/ALBUTEROL 0.5-3(2.5)MG/3ML NEB HHN SCH ×4 (02:34→20:02)
[2017-10-27] MEDS: FENTANYL CITRATE/PF 500 MCG in SODIUM CHLORIDE 0.9% 40 ML IV PRN (02:57)
[2017-10-27] MEDS: BLOOD SUGAR DIAGNOSTIC STRIP TEST SCH ×4 (06:05→17:50)
[2017-10-27] MEDS: LEVOTHYROXINE SODIUM 50MCG TABLET PO SCH (06:06)
[2017-10-27 06:34] LABS: HEMATOCRIT. 28.8 % (36.0-48.0); HEMOGLOBIN. 9.7 g/dL (12.0-16.0); MEAN CORPUSCULAR VOLUME 95.6 fL (81.0-99.0); MEAN PLATELET VOLUME 9.3 fl (7.4-10.4); PLATELET 56 x1000/uL (130-400); RED BLOOD CELL COUNT 3.01 mill/uL (4.2-5.4); RED CELL DISTRIBUTION WIDTH 19.6 % (11.6-14.6)
[2017-10-27] MEDS: INSULIN LISPRO 100 UNITS/ML SUBCUT SCH ×4 (07:00→21:00)
[2017-10-27 08:35] LABS: BG BASE EXCESS 2.4 mmol/L (-2.0-2.0); BG DEOXYHEMOGLOBIN 1.4 % (0.0-5.0); BG FRACTION INSPIRED OXYGEN 40; BG HCO3 ACT 25.7 mmol/L (22.0-26.0); BG OXYGEN SATURATION 98.6 % (92.0-98.5); BG OXYHEMOGLOBIN 98.6 % (94.0-97.0); BG PH 7.484 (7.350-7.450); BG PO2 138.1 mmHg (75.0-100.0); BG SAMPLE SITE RIGHT RADIAL; BG TOTAL HEMOGLOBIN 10.3 g/dL (12.0-18.0); BG VENT MODE VENT - A/C; BG VENT RATE 450 set
[2017-10-27] MEDS: ACETYLCYSTEINE 100MG/ML 10% VIAL 4ML INH SCH ×2 (08:36→13:45)
[2017-10-27] MEDS: AMIODARONE HCL 200 MG TABLET PO SCH (09:12)
[2017-10-27] MEDS: PREDNISOLONE ACETATE 1% OPHTH DROPS 1ML BOTHEYE SCH ×3 (09:12→17:49)
[2017-10-27] MEDS: SEVELAMER CARBONATE 800 MG TABLET PO SCH ×3 (09:12→17:00)
[2017-10-27] MEDS: GUAIFENESIN 600MG ER TABLET PO SCH ×2 (09:12→21:00)
[2017-10-27] MEDS: DORZOLAMIDE 2% OPHTH 10 ML BOTTLE BOTHEYE SCH ×3 (09:12→17:49)
[2017-10-27] MEDS: NYSTATIN POWDER 15GM TOP SCH ×2 (09:13→21:59)
[2017-10-27 13:15] LABS: PLATELET ESTIMATE MARKEDLY DECREASED
[2017-10-27] MEDS: NOREPINEPHRINE 8 MG in DEXT 5% WATER 242 ML IV PRN (14:02)
[2017-10-27] MEDS: PHENYLEPHRINE 40 MG in DEXT 5% WATER 246 ML IV PRN (15:50)
[2017-10-27] MEDS: CEFTAZIDIME PENTAHYDRATE 1 G in DEXTROSE 5% WATER 50 ML IV SCH (16:08)
[2017-10-27 17:00] LABS: BG BASE EXCESS 3.5 mmol/L (-2.0-2.0); BG CARBOXYHEMOGLOBIN 0.4 % (0.5-1.5); BG FRACTION INSPIRED OXYGEN 40; BG HCO3 ACT 27.2 mmol/L (22.0-26.0); BG METHEMOGLOBIN 0.3 % (0.0-1.5); BG OXYHEMOGLOBIN 97.3 % (94.0-97.0); BG PCO2 37.9 mmHg (35.0-45.0); BG PH 7.473 (7.350-7.450); BG PO2 102.5 mmHg (75.0-100.0); BG PRESSURE SUPPORT 8; BG SAMPLE SITE RIGHT RADIAL; BG TOTAL HEMOGLOBIN 11.8 g/dL (12.0-18.0); BG VENT MODE VENT - CPAP
[2017-10-27] MEDS: MIDODRINE HCL 5MG TABLET PO SCH (17:00)
[2017-10-27] MEDS ORDERED: METHYLPREDNISOLONE SOD SUCC 125 MG/2 ML VIAL IV NR (17:51)
[2017-10-27] MEDS: RACEPINEPHRINE 2.25% 0.5ML NEB VIAL HHN PRN (18:01)
[2017-10-27] MEDS ORDERED: VANCOMYCIN 750 MG PREMIX 150 ML IV NR (20:00)
[2017-10-27] MEDS: FAMOTIDINE 20MG TABLET PO SCH (21:00)
[2017-10-27] MEDS: ATORVASTATIN CALCIUM 10MG TABLET PO SCH (21:00)
[2017-10-27] MEDS: MONTELUKAST SODIUM 10MG TABLET PO SCH (21:00)
[2017-10-28] VITALS (83 sets, daily range): BP systolic 68–211; BP diastolic 49–116
[2017-10-28] MEDS: INSULIN LISPRO 100 UNITS/ML SUBCUT SCH ×4 (00:09→21:27)
[2017-10-28] MEDS: BLOOD SUGAR DIAGNOSTIC STRIP TEST SCH ×4 (00:17→17:46)
[2017-10-28] MEDS: ACETYLCYSTEINE 100MG/ML 10% VIAL 4ML INH SCH ×3 (02:05→13:38)
[2017-10-28] MEDS: IPRATROPIUM/ALBUTEROL 0.5-3(2.5)MG/3ML NEB HHN SCH ×4 (02:05→20:20)
[2017-10-28 05:53] LABS: HEMATOCRIT. 31.7 % (36.0-48.0); HEMOGLOBIN. 10.5 g/dL (12.0-16.0); MEAN CORPUSCULAR HEMOGLOBIN 31.8 pg (28.0-32.0); MEAN CORPUSCULAR VOLUME 96.3 fL (81.0-99.0); PLATELET 81 x1000/uL (130-400); RED BLOOD CELL COUNT 3.29 mill/uL (4.2-5.4); RED CELL DISTRIBUTION WIDTH 20.3 % (11.6-14.6)
[2017-10-28] MEDS: SEVELAMER CARBONATE 800 MG TABLET PO SCH ×3 (06:07→16:01)
[2017-10-28] MEDS: LEVOTHYROXINE SODIUM 50MCG TABLET PO SCH (06:09)
[2017-10-28] MEDS: NOREPINEPHRINE 8 MG in DEXT 5% WATER 242 ML IV PRN (08:04)
[2017-10-28] MEDS: RACEPINEPHRINE 2.25% 0.5ML NEB VIAL HHN PRN (08:14)
[2017-10-28] MEDS ORDERED: METHYLPREDNISOLONE SOD SUCC 125 MG/2 ML VIAL IV NR (08:30)
[2017-10-28] MEDS: PHENYLEPHRINE 40 MG in DEXT 5% WATER 246 ML IV PRN (08:32)
[2017-10-28 08:53] LABS: BG BASE EXCESS -0.2 mmol/L (-2.0-2.0); BG CARBOXYHEMOGLOBIN 0.5 % (0.5-1.5); BG DEOXYHEMOGLOBIN 9.1 % (0.0-5.0); BG FRACTION INSPIRED OXYGEN 100; BG HCO3 ACT 23.7 mmol/L (22.0-26.0); BG METHEMOGLOBIN 0.3 % (0.0-1.5); BG OXYGEN SATURATION 90.8 % (92.0-98.5); BG OXYHEMOGLOBIN 90.1 % (94.0-97.0); BG PCO2 35.9 mmHg (35.0-45.0); BG PH 7.437 (7.350-7.450); BG PO2 55.8 mmHg (75.0-100.0); BG SAMPLE SITE RIGHT FEMORAL; BG TOTAL HEMOGLOBIN 11.1 g/dL (12.0-18.0); BG VENT MODE MASK - NRB
[2017-10-28] MEDS: MIDODRINE HCL 5MG TABLET PO SCH ×3 (09:00→16:01)
[2017-10-28] MEDS: AMIODARONE HCL 200 MG TABLET PO SCH (09:00)
[2017-10-28] MEDS: GUAIFENESIN 600MG ER TABLET PO SCH ×2 (09:00→21:00)
[2017-10-28] MEDS: DORZOLAMIDE 2% OPHTH 10 ML BOTTLE BOTHEYE SCH ×3 (09:39→16:43)
[2017-10-28] MEDS: PREDNISOLONE ACETATE 1% OPHTH DROPS 1ML BOTHEYE SCH ×3 (09:39→16:43)
[2017-10-28] MEDS: NYSTATIN POWDER 15GM TOP SCH ×2 (09:39→21:27)
[2017-10-28] MEDS: ALBUMIN HUMAN 25GM/100ML (25%) IV NR ×2 (10:12→10:36)
[2017-10-28 11:11] LABS: BG CARBOXYHEMOGLOBIN 0.6 % (0.5-1.5); BG DEOXYHEMOGLOBIN 1.6 % (0.0-5.0); BG FRACTION INSPIRED OXYGEN 100; BG HCO3 ACT 22.3 mmol/L (22.0-26.0); BG METHEMOGLOBIN 0.1 % (0.0-1.5); BG OXYGEN SATURATION 98.4 % (92.0-98.5); BG OXYHEMOGLOBIN 97.7 % (94.0-97.0); BG PCO2 33.1 mmHg (35.0-45.0); BG PH 7.446 (7.350-7.450); BG PO2 118.1 mmHg (75.0-100.0); BG SAMPLE SITE RIGHT BRACHIAL; BG TIDAL VOLUME(mL) 450 mL; BG TOTAL HEMOGLOBIN 14.3 g/dL (12.0-18.0); BG VENT MODE VENT - A/C; BG VENT RATE 12 set
[2017-10-28 13:12] LABS: ATYPICAL LYMPHOCYTES 1; PLATELET ESTIMATE DECREASED
[2017-10-28] MEDS: METHYLPREDNISOLONE SOD SUCC 125 MG/2 ML VIAL IV SCH ×2 (14:28→21:27)
[2017-10-28] MEDS: CEFTAZIDIME PENTAHYDRATE 1 G in DEXTROSE 5% WATER 50 ML IV SCH (14:28)
[2017-10-28] MEDS: FENTANYL CITRATE/PF 500 MCG in SODIUM CHLORIDE 0.9% 40 ML IV PRN (14:29)
[2017-10-28] MEDS ORDERED: VECURONIUM BROMIDE 10 MG/VIAL IV ONE (14:50)
[2017-10-28] MEDS ORDERED: ETOMIDATE 2MG/ML 10ML VIAL IV ONE (14:50)
[2017-10-28] MEDS: ATORVASTATIN CALCIUM 10MG TABLET PO SCH (21:00)
[2017-10-28] MEDS: MONTELUKAST SODIUM 10MG TABLET PO SCH (21:00)
[2017-10-28] MEDS: FAMOTIDINE 20MG TABLET PO SCH (21:00)
[2017-10-29] VITALS (97 sets, daily range): BP systolic 80–158; BP diastolic 48–80
[2017-10-29] MEDS: IPRATROPIUM/ALBUTEROL 0.5-3(2.5)MG/3ML NEB HHN SCH ×5 (01:38→23:47)
[2017-10-29] MEDS: METHYLPREDNISOLONE SOD SUCC 125 MG/2 ML VIAL IV SCH ×4 (03:51→20:28)
[2017-10-29 05:31] LABS: HEMATOCRIT. 25.7 % (36.0-48.0); HEMOGLOBIN. 8.5 g/dL (12.0-16.0); MEAN CORPUSCULAR HEMOGLOBIN 31.7 pg (28.0-32.0); MEAN CORPUSCULAR VOLUME 96.4 fL (81.0-99.0); MEAN PLATELET VOLUME 11.2 fl (7.4-10.4); PLATELET 75 x1000/uL (130-400); RED BLOOD CELL COUNT 2.67 mill/uL (4.2-5.4); RED CELL DISTRIBUTION WIDTH 19.6 % (11.6-14.6)
[2017-10-29] MEDS: FENTANYL CITRATE/PF 500 MCG in SODIUM CHLORIDE 0.9% 40 ML IV PRN ×2 (05:48→15:11)
[2017-10-29] MEDS: LEVOTHYROXINE SODIUM 50MCG TABLET PO SCH ×2 (06:06→10:37)
[2017-10-29] MEDS: SEVELAMER CARBONATE 800 MG TABLET PO SCH ×4 (06:06→17:15)
[2017-10-29] MEDS: INSULIN LISPRO 100 UNITS/ML SUBCUT SCH ×4 (06:10→23:32)
[2017-10-29] MEDS: BLOOD SUGAR DIAGNOSTIC STRIP TEST SCH ×5 (06:11→23:31)
[2017-10-29] MEDS: NYSTATIN POWDER 15GM TOP SCH ×2 (08:51→20:28)
[2017-10-29] MEDS: DORZOLAMIDE 2% OPHTH 10 ML BOTTLE BOTHEYE SCH ×3 (08:51→17:13)
[2017-10-29] MEDS: PREDNISOLONE ACETATE 1% OPHTH DROPS 1ML BOTHEYE SCH ×3 (08:51→17:13)
[2017-10-29 08:59] LABS: BG BASE EXCESS 2.4 mmol/L (-2.0-2.0); BG CARBOXYHEMOGLOBIN 0.1 % (0.5-1.5); BG DEOXYHEMOGLOBIN 2.3 % (0.0-5.0); BG FRACTION INSPIRED OXYGEN 40; BG HCO3 ACT 25.6 mmol/L (22.0-26.0); BG METHEMOGLOBIN 0.1 % (0.0-1.5); BG OXYGEN SATURATION 97.7 % (92.0-98.5); BG OXYHEMOGLOBIN 97.5 % (94.0-97.0); BG PCO2 33.8 mmHg (35.0-45.0); BG PH 7.497 (7.350-7.450); BG PO2 95.5 mmHg (75.0-100.0); BG SAMPLE SITE RIGHT RADIAL; BG TIDAL VOLUME(mL) 450 mL; BG TOTAL HEMOGLOBIN 8.7 g/dL (12.0-18.0); BG VENT MODE VENT - A/C; BG VENT RATE 10 set
[2017-10-29 09:45] LABS: PLATELET ESTIMATE DECREASED
[2017-10-29] MEDS: MONTELUKAST SODIUM 10MG TABLET PO SCH ×2 (10:34→20:28)
[2017-10-29] MEDS: GUAIFENESIN 600MG ER TABLET PO SCH ×2 (10:35→20:28)
[2017-10-29] MEDS: MIDODRINE HCL 5MG TABLET PO SCH ×3 (10:36→17:14)
[2017-10-29] MEDS: ATORVASTATIN CALCIUM 10MG TABLET PO SCH ×2 (10:36→20:28)
[2017-10-29] MEDS: AMIODARONE HCL 200 MG TABLET PO SCH (10:36)
[2017-10-29] MEDS: FAMOTIDINE 20MG TABLET PO SCH ×2 (10:37→20:28)
[2017-10-29] MEDS: NOREPINEPHRINE 8 MG in DEXT 5% WATER 242 ML IV PRN (11:41)
[2017-10-29] MEDS ORDERED: VANCOMYCIN 750 MG PREMIX 150 ML IV SCH (15:00)
[2017-10-29] MEDS: CEFTAZIDIME PENTAHYDRATE 1 G in DEXTROSE 5% WATER 50 ML IV SCH (15:04)
[2017-10-30] VITALS (98 sets, daily range): BP systolic 86–157; BP diastolic 41–81
[2017-10-30] MEDS: METHYLPREDNISOLONE SOD SUCC 125 MG/2 ML VIAL IV SCH ×4 (02:30→20:27)
[2017-10-30] MEDS: FENTANYL CITRATE/PF 500 MCG in SODIUM CHLORIDE 0.9% 40 ML IV PRN ×3 (03:02→20:27)
[2017-10-30 05:23] LABS: HEMATOCRIT. 27.3 % (36.0-48.0); HEMOGLOBIN. 8.7 g/dL (12.0-16.0); MEAN CORPUSCULAR HEMOGLOBIN 31.4 pg (28.0-32.0); PLATELET 128 x1000/uL (130-400); RED BLOOD CELL COUNT 2.79 mill/uL (4.2-5.4)
[2017-10-30] MEDS: LEVOTHYROXINE SODIUM 50MCG TABLET PO SCH (06:06)
[2017-10-30] MEDS: INSULIN LISPRO 100 UNITS/ML SUBCUT SCH ×4 (06:06→23:19)
[2017-10-30] MEDS: BLOOD SUGAR DIAGNOSTIC STRIP TEST SCH ×4 (06:06→23:17)
[2017-10-30] MEDS: SEVELAMER CARBONATE 800 MG TABLET PO SCH ×3 (06:06→17:24)
[2017-10-30 06:58] LABS: PLATELET ESTIMATE SLIGHTLY DECREASED
[2017-10-30] MEDS ORDERED: LIDOCAINE HCL 1% 10 MG/ML 10ML VIAL ONE (07:03)
[2017-10-30 07:48] LABS: BG BASE EXCESS 2.8 mmol/L (-2.0-2.0); BG CARBOXYHEMOGLOBIN 0.3 % (0.5-1.5); BG DEOXYHEMOGLOBIN 2.2 % (0.0-5.0); BG HCO3 ACT 26.2 mmol/L (22.0-26.0); BG METHEMOGLOBIN 0.2 % (0.0-1.5); BG OXYGEN SATURATION 97.8 % (92.0-98.5); BG OXYHEMOGLOBIN 97.3 % (94.0-97.0); BG PCO2 35.6 mmHg (35.0-45.0); BG PH 7.485 (7.350-7.450); BG PO2 101.5 mmHg (75.0-100.0); BG SAMPLE SITE RIGHT BRACHIAL; BG TIDAL VOLUME(mL) 450 mL; BG TOTAL HEMOGLOBIN 9.5 g/dL (12.0-18.0); BG VENT MODE VENT - A/C; BG VENT RATE 10 set
[2017-10-30] MEDS: IPRATROPIUM/ALBUTEROL 0.5-3(2.5)MG/3ML NEB HHN SCH ×3 (07:59→20:00)
[2017-10-30] MEDS: AMIODARONE HCL 200 MG TABLET PO SCH (09:10)
[2017-10-30] MEDS: MIDODRINE HCL 5MG TABLET PO SCH ×3 (09:11→17:24)
[2017-10-30] MEDS: DORZOLAMIDE 2% OPHTH 10 ML BOTTLE BOTHEYE SCH ×3 (09:11→17:24)
[2017-10-30] MEDS: PREDNISOLONE ACETATE 1% OPHTH DROPS 1ML BOTHEYE SCH ×3 (09:11→17:23)
[2017-10-30] MEDS: GUAIFENESIN 600MG ER TABLET PO SCH ×2 (09:11→20:27)
[2017-10-30] MEDS: NYSTATIN POWDER 15GM TOP SCH ×2 (09:44→20:27)
[2017-10-30] MEDS ORDERED: HEPARIN SODIUM 1,000 UNIT/1ML VIAL IV SCH (11:45)
[2017-10-30] MEDS: NOREPINEPHRINE 8 MG in DEXT 5% WATER 242 ML IV PRN (12:36)
[2017-10-30] MEDS: PHENYLEPHRINE 40 MG in DEXT 5% WATER 246 ML IV PRN (14:34)
[2017-10-30] MEDS: CEFTAZIDIME PENTAHYDRATE 1 G in DEXTROSE 5% WATER 50 ML IV SCH (14:34)
[2017-10-30] MEDS: FAMOTIDINE 20MG TABLET PO SCH (20:27)
[2017-10-30] MEDS: MONTELUKAST SODIUM 10MG TABLET PO SCH (20:27)
[2017-10-30] MEDS: ATORVASTATIN CALCIUM 10MG TABLET PO SCH (20:27)
[2017-10-31] VITALS (104 sets, daily range): BP systolic 85–160; BP diastolic 42–91
[2017-10-31] MEDS: IPRATROPIUM/ALBUTEROL 0.5-3(2.5)MG/3ML NEB HHN SCH ×4 (01:45→20:50)
[2017-10-31] MEDS: METHYLPREDNISOLONE SOD SUCC 125 MG/2 ML VIAL IV SCH (02:22)
[2017-10-31] MEDS: NOREPINEPHRINE 8 MG in DEXT 5% WATER 242 ML IV PRN ×2 (04:04→17:14)
[2017-10-31] MEDS: INSULIN LISPRO 100 UNITS/ML SUBCUT SCH ×3 (05:22→18:02)
[2017-10-31] MEDS: BLOOD SUGAR DIAGNOSTIC STRIP TEST SCH ×3 (05:22→18:01)
[2017-10-31 05:37] LABS: HEMATOCRIT. 26.4 % (36.0-48.0); HEMOGLOBIN. 8.6 g/dL (12.0-16.0); MEAN CORPUSCULAR HEMOGLOBIN 32.8 pg (28.0-32.0); MEAN CORPUSCULAR VOLUME 100.8 fL (81.0-99.0); MEAN PLATELET VOLUME 10.5 fl (7.4-10.4); PLATELET 135 x1000/uL (130-400); RED BLOOD CELL COUNT 2.62 mill/uL (4.2-5.4); RED CELL DISTRIBUTION WIDTH 19.6 % (11.6-14.6)
[2017-10-31] MEDS: SEVELAMER CARBONATE 800 MG TABLET PO SCH ×3 (06:35→17:13)
[2017-10-31] MEDS: FENTANYL CITRATE/PF 500 MCG in SODIUM CHLORIDE 0.9% 40 ML IV PRN ×3 (06:35→19:49)
[2017-10-31] MEDS: LEVOTHYROXINE SODIUM 50MCG TABLET PO SCH (06:35)
[2017-10-31 08:21] LABS: BG BASE EXCESS 4.7 mmol/L (-2.0-2.0); BG CARBOXYHEMOGLOBIN 0.5 % (0.5-1.5); BG DEOXYHEMOGLOBIN 1.8 % (0.0-5.0); BG FRACTION INSPIRED OXYGEN 40; BG HCO3 ACT 28.9 mmol/L (22.0-26.0); BG METHEMOGLOBIN 0.3 % (0.0-1.5); BG OXYGEN SATURATION 98.2 % (92.0-98.5); BG OXYHEMOGLOBIN 97.4 % (94.0-97.0); BG PCO2 41.3 mmHg (35.0-45.0); BG PH 7.463 (7.350-7.450); BG PO2 104.4 mmHg (75.0-100.0); BG SAMPLE SITE RIGHT BRACHIAL; BG TIDAL VOLUME(mL) 450 mL; BG TOTAL HEMOGLOBIN 8.7 g/dL (12.0-18.0); BG VENT MODE VENT - A/C; BG VENT RATE 10 set
[2017-10-31 08:24] LABS: PLATELET ESTIMATE NORMAL
[2017-10-31] MEDS: DORZOLAMIDE 2% OPHTH 10 ML BOTTLE BOTHEYE SCH ×3 (09:18→17:12)
[2017-10-31] MEDS: PREDNISOLONE ACETATE 1% OPHTH DROPS 1ML BOTHEYE SCH ×3 (09:18→17:12)
[2017-10-31] MEDS: GUAIFENESIN 600MG ER TABLET PO SCH ×2 (09:19→21:36)
[2017-10-31] MEDS: MIDODRINE HCL 5MG TABLET PO SCH ×3 (09:19→17:13)
[2017-10-31] MEDS: AMIODARONE HCL 200 MG TABLET PO SCH (09:19)
[2017-10-31] MEDS ORDERED: METHYLPREDNISOLONE SOD SUCC 125 MG/2 ML VIAL IV SCH (10:00)
[2017-10-31] MEDS ORDERED: IOHEXOL-350 100 ML BOTTLE ONE (10:50)
[2017-10-31] MEDS: PHENYLEPHRINE 40 MG in DEXT 5% WATER 246 ML IV PRN (17:14)
[2017-10-31] MEDS: METHYLPREDNISOLONE SOD SUCC 40 MG/ML VIAL IV SCH (18:01)
[2017-10-31] MEDS ORDERED: VANCOMYCIN 750 MG PREMIX 150 ML IV SCH (21:00)
[2017-10-31] MEDS: ATORVASTATIN CALCIUM 10MG TABLET PO SCH (21:36)
[2017-10-31] MEDS: FAMOTIDINE 20MG TABLET PO SCH (21:36)
[2017-10-31] MEDS: ACETAMINOPHEN 325MG TABLET PO PRN (21:36)
[2017-10-31] MEDS: MONTELUKAST SODIUM 10MG TABLET PO SCH (21:44)
[2017-11-01] VITALS (82 sets, daily range): BP systolic 81–160; BP diastolic 44–91
[2017-11-01] MEDS: INSULIN LISPRO 100 UNITS/ML SUBCUT SCH ×4 (00:47→18:16)
[2017-11-01] MEDS: IPRATROPIUM/ALBUTEROL 0.5-3(2.5)MG/3ML NEB HHN SCH ×4 (01:17→19:53)
[2017-11-01] MEDS: METHYLPREDNISOLONE SOD SUCC 40 MG/ML VIAL IV SCH ×3 (02:22→18:15)
[2017-11-01] MEDS: BLOOD SUGAR DIAGNOSTIC STRIP TEST SCH ×4 (06:00→18:16)
[2017-11-01 06:07] LABS: HEMOGLOBIN. 7.9 g/dL (12.0-16.0); MEAN CORPUSCULAR HEMOGLOBIN 32.4 pg (28.0-32.0); MEAN CORPUSCULAR VOLUME 99.1 fL (81.0-99.0); MEAN PLATELET VOLUME 11.1 fl (7.4-10.4); PLATELET 124 x1000/uL (130-400); RED BLOOD CELL COUNT 2.43 mill/uL (4.2-5.4); RED CELL DISTRIBUTION WIDTH 20.6 % (11.6-14.6)
[2017-11-01] MEDS: LEVOTHYROXINE SODIUM 50MCG TABLET PO SCH (06:27)
[2017-11-01] MEDS: SEVELAMER CARBONATE 800 MG TABLET PO SCH ×3 (06:27→18:17)
[2017-11-01] MEDS: FENTANYL CITRATE/PF 500 MCG in SODIUM CHLORIDE 0.9% 40 ML IV PRN ×3 (06:37→23:44)
[2017-11-01 08:01] LABS: BG BASE EXCESS 4.3 mmol/L (-2.0-2.0); BG CARBOXYHEMOGLOBIN 0.3 % (0.5-1.5); BG DEOXYHEMOGLOBIN 1.6 % (0.0-5.0); BG FRACTION INSPIRED OXYGEN 40; BG HCO3 ACT 27.8 mmol/L (22.0-26.0); BG METHEMOGLOBIN 0.3 % (0.0-1.5); BG OXYGEN SATURATION 98.4 % (92.0-98.5); BG OXYHEMOGLOBIN 97.8 % (94.0-97.0); BG PCO2 37.1 mmHg (35.0-45.0); BG PH 7.492 (7.350-7.450); BG PO2 126.7 mmHg (75.0-100.0); BG SAMPLE SITE RIGHT BRACHIAL; BG TIDAL VOLUME(mL) 450 mL; BG TOTAL HEMOGLOBIN 9.6 g/dL (12.0-18.0); BG VENT MODE VENT - A/C; BG VENT RATE 10 set
[2017-11-01] MEDS: DORZOLAMIDE 2% OPHTH 10 ML BOTTLE BOTHEYE SCH ×3 (08:31→18:17)
[2017-11-01] MEDS: PREDNISOLONE ACETATE 1% OPHTH DROPS 1ML BOTHEYE SCH ×3 (08:31→18:17)
[2017-11-01] MEDS: AMIODARONE HCL 200 MG TABLET PO SCH (08:32)
[2017-11-01] MEDS: GUAIFENESIN 600MG ER TABLET PO SCH ×2 (08:32→23:43)
[2017-11-01] MEDS: MIDODRINE HCL 5MG TABLET PO SCH ×3 (08:33→18:17)
[2017-11-01 12:57] LABS: NUCLEATED RED BLOOD CELLS 2 /100 WBC
[2017-11-01 12:58] LABS: PLATELET ESTIMATE SLIGHTLY DECREASED
[2017-11-01] MEDS ORDERED: SUCCINYLCHOLINE CHLORIDE 200MG/10ML IV ONE (13:45)
[2017-11-01] MEDS ORDERED: ETOMIDATE 2MG/ML 10ML VIAL IV ONE (13:45)
[2017-11-01] MEDS: FAMOTIDINE 20MG TABLET PO SCH (23:42)
[2017-11-01] MEDS: MONTELUKAST SODIUM 10MG TABLET PO SCH (23:42)
[2017-11-01] MEDS: ATORVASTATIN CALCIUM 10MG TABLET PO SCH (23:42)
[2017-11-02] VITALS (74 sets, daily range): BP systolic 53–185; BP diastolic 31–98
[2017-11-02] MEDS: IPRATROPIUM/ALBUTEROL 0.5-3(2.5)MG/3ML NEB HHN SCH ×4 (01:48→19:56)
[2017-11-02] MEDS: EPOETIN ALFA 10000UNITS/ML VIAL SUBCUT SCH (01:58)
[2017-11-02] MEDS: METHYLPREDNISOLONE SOD SUCC 40 MG/ML VIAL IV SCH ×3 (02:08→21:23)
[2017-11-02] MEDS: FENTANYL CITRATE/PF 500 MCG in SODIUM CHLORIDE 0.9% 40 ML IV PRN ×3 (03:57→22:22)
[2017-11-02 06:21] LABS: HEMATOCRIT. 24.6 % (36.0-48.0); HEMOGLOBIN. 7.8 g/dL (12.0-16.0); MEAN CORPUSCULAR HEMOGLOBIN 32.1 pg (28.0-32.0); MEAN CORPUSCULAR VOLUME 101.8 fL (81.0-99.0); MEAN PLATELET VOLUME 10.3 fl (7.4-10.4); PLATELET 108 x1000/uL (130-400); RED BLOOD CELL COUNT 2.42 mill/uL (4.2-5.4); RED CELL DISTRIBUTION WIDTH 21.3 % (11.6-14.6)
[2017-11-02 06:36] LABS: PHOSPHORUS 2.1 mg/dL (2.5-4.9)
[2017-11-02] MEDS: BLOOD SUGAR DIAGNOSTIC STRIP TEST SCH ×5 (06:53→23:29)
[2017-11-02] MEDS: LEVOTHYROXINE SODIUM 50MCG TABLET PO SCH (06:57)
[2017-11-02] MEDS: INSULIN LISPRO 100 UNITS/ML SUBCUT SCH ×5 (06:58→23:29)
[2017-11-02] MEDS: SEVELAMER CARBONATE 800 MG TABLET PO SCH (07:00)
[2017-11-02 08:26] LABS: BG BASE EXCESS -1.1 mmol/L (-2.0-2.0); BG CARBOXYHEMOGLOBIN 0.7 % (0.5-1.5); BG DEOXYHEMOGLOBIN 1.2 % (0.0-5.0); BG FRACTION INSPIRED OXYGEN 50; BG HCO3 ACT 21.7 mmol/L (22.0-26.0); BG METHEMOGLOBIN 0.1 % (0.0-1.5); BG OXYGEN SATURATION 98.8 % (92.0-98.5); BG PCO2 29.1 mmHg (35.0-45.0); BG PH 7.491 (7.350-7.450); BG PO2 131.1 mmHg (75.0-100.0); BG SAMPLE SITE RIGHT BRACHIAL; BG TIDAL VOLUME(mL) 450 mL; BG TOTAL HEMOGLOBIN 8.6 g/dL (12.0-18.0); BG VENT MODE VENT - A/C; BG VENT RATE 10 set
[2017-11-02 08:33] LABS: PLATELET ESTIMATE DECREASED
[2017-11-02] MEDS: DOCUSATE SODIUM SUGAR FREE 100MG/10ML UDC NG SCH (08:52)
[2017-11-02] MEDS: AMIODARONE HCL 200 MG TABLET PO SCH (08:53)
[2017-11-02] MEDS: MIDODRINE HCL 5MG TABLET PO SCH ×3 (08:54→18:25)
[2017-11-02] MEDS: PREDNISOLONE ACETATE 1% OPHTH DROPS 1ML BOTHEYE SCH ×3 (08:56→18:24)
[2017-11-02] MEDS: DORZOLAMIDE 2% OPHTH 10 ML BOTTLE BOTHEYE SCH ×3 (08:56→18:24)
[2017-11-02] MEDS: INSULIN GLARGINE UD 100 UNITS/ML SYR SUBCUT SCH (09:05)
[2017-11-02] MEDS: NOREPINEPHRINE 8 MG in DEXT 5% WATER 242 ML IV PRN ×2 (10:06→23:40)
[2017-11-02] MEDS: FAMOTIDINE 20MG TABLET PO SCH (21:23)
[2017-11-02] MEDS: MONTELUKAST SODIUM 10MG TABLET PO SCH (21:23)
[2017-11-02] MEDS: ATORVASTATIN CALCIUM 10MG TABLET PO SCH (21:23)
[2017-11-03] VITALS (95 sets, daily range): BP systolic 82–137; BP diastolic 43–78
[2017-11-03] MEDS: IPRATROPIUM/ALBUTEROL 0.5-3(2.5)MG/3ML NEB HHN SCH ×4 (01:36→20:45)
[2017-11-03] MEDS: INSULIN LISPRO 100 UNITS/ML SUBCUT SCH ×4 (05:43→23:12)
[2017-11-03] MEDS: BLOOD SUGAR DIAGNOSTIC STRIP TEST SCH ×4 (05:43→23:12)
[2017-11-03] MEDS: LEVOTHYROXINE SODIUM 50MCG TABLET PO SCH (05:43)
[2017-11-03 05:45] LABS: HEMATOCRIT. 33.7 % (36.0-48.0); HEMOGLOBIN. 11.1 g/dL (12.0-16.0); MEAN PLATELET VOLUME 9.6 fl (7.4-10.4); PLATELET 122 x1000/uL (130-400); RED BLOOD CELL COUNT 3.59 mill/uL (4.2-5.4); RED CELL DISTRIBUTION WIDTH 19.5 % (11.6-14.6)
[2017-11-03] MEDS: FENTANYL CITRATE/PF 500 MCG in SODIUM CHLORIDE 0.9% 40 ML IV PRN ×2 (07:41→17:54)
[2017-11-03 07:59] LABS: PLATELET ESTIMATE SLIGHTLY DECREASED
[2017-11-03] MEDS: DORZOLAMIDE 2% OPHTH 10 ML BOTTLE BOTHEYE SCH ×3 (09:32→17:55)
[2017-11-03] MEDS: PREDNISOLONE ACETATE 1% OPHTH DROPS 1ML BOTHEYE SCH ×3 (09:32→17:54)
[2017-11-03] MEDS: METHYLPREDNISOLONE SOD SUCC 40 MG/ML VIAL IV SCH (09:32)
[2017-11-03 09:33] LABS: BG BASE EXCESS -0.9 mmol/L (-2.0-2.0); BG CARBOXYHEMOGLOBIN 0.1 % (0.5-1.5); BG DEOXYHEMOGLOBIN 2.9 % (0.0-5.0); BG FRACTION INSPIRED OXYGEN 40; BG HCO3 ACT 22.9 mmol/L (22.0-26.0); BG METHEMOGLOBIN 0.3 % (0.0-1.5); BG OXYGEN SATURATION 97.1 % (92.0-98.5); BG OXYHEMOGLOBIN 96.7 % (94.0-97.0); BG PH 7.434 (7.350-7.450); BG PO2 86.3 mmHg (75.0-100.0); BG SAMPLE SITE RIGHT RADIAL; BG TIDAL VOLUME(mL) 450 mL; BG TOTAL HEMOGLOBIN 11.1 g/dL (12.0-18.0); BG VENT MODE VENT - A/C; BG VENT RATE 10 set
[2017-11-03] MEDS: MIDODRINE HCL 5MG TABLET PO SCH ×3 (09:33→17:53)
[2017-11-03] MEDS: AMIODARONE HCL 200 MG TABLET PO SCH (09:33)
[2017-11-03] MEDS: DOCUSATE SODIUM SUGAR FREE 100MG/10ML UDC NG SCH (09:33)
[2017-11-03] MEDS: INSULIN GLARGINE UD 100 UNITS/ML SYR SUBCUT SCH (09:35)
[2017-11-03] MEDS ORDERED: KCL 10MEQ/50ML PREMIX 50 ML IV NR (12:45)
[2017-11-03] MEDS: DEXTROSE 50% WATER 50ML SYRINGE IV PRN (14:00)
[2017-11-03] MEDS: FAMOTIDINE 20MG TABLET PO SCH (21:10)
[2017-11-03] MEDS: MONTELUKAST SODIUM 10MG TABLET PO SCH (21:10)
[2017-11-03] MEDS: ATORVASTATIN CALCIUM 10MG TABLET PO SCH (21:10)
[2017-11-03] MEDS: NOREPINEPHRINE 8 MG in DEXT 5% WATER 242 ML IV PRN (21:12)
[2017-11-04] VITALS (94 sets, daily range): BP systolic 73–162; BP diastolic 42–87
[2017-11-04] MEDS: IPRATROPIUM/ALBUTEROL 0.5-3(2.5)MG/3ML NEB HHN SCH ×4 (01:16→19:54)
[2017-11-04] MEDS: FENTANYL CITRATE/PF 500 MCG in SODIUM CHLORIDE 0.9% 40 ML IV PRN ×2 (04:57→16:49)
[2017-11-04 05:20] LABS: HEMATOCRIT. 32.6 % (36.0-48.0); HEMOGLOBIN. 10.9 g/dL (12.0-16.0); MEAN CORPUSCULAR HEMOGLOBIN 31.8 pg (28.0-32.0); MEAN CORPUSCULAR VOLUME 95.4 fL (81.0-99.0); MEAN PLATELET VOLUME 9.9 fl (7.4-10.4); PLATELET 87 x1000/uL (130-400); RED BLOOD CELL COUNT 3.42 mill/uL (4.2-5.4); RED CELL DISTRIBUTION WIDTH 20.7 % (11.6-14.6)
[2017-11-04] MEDS: BLOOD SUGAR DIAGNOSTIC STRIP TEST SCH ×3 (05:34→18:29)
[2017-11-04] MEDS: LEVOTHYROXINE SODIUM 50MCG TABLET PO SCH (05:35)
[2017-11-04] MEDS: INSULIN LISPRO 100 UNITS/ML SUBCUT SCH ×3 (05:35→18:00)
[2017-11-04 07:16] LABS: BG BASE EXCESS -1.8 mmol/L (-2.0-2.0); BG CARBOXYHEMOGLOBIN 0.1 % (0.5-1.5); BG DEOXYHEMOGLOBIN 4.9 % (0.0-5.0); BG METHEMOGLOBIN 0.2 % (0.0-1.5); BG OXYGEN SATURATION 95.1 % (92.0-98.5); BG OXYHEMOGLOBIN 94.8 % (94.0-97.0); BG PCO2 33.7 mmHg (35.0-45.0); BG PH 7.432 (7.350-7.450); BG PO2 69.4 mmHg (75.0-100.0); BG SAMPLE SITE RIGHT BRACHIAL; BG TIDAL VOLUME(mL) 450 mL; BG TOTAL HEMOGLOBIN 10.9 g/dL (12.0-18.0); BG VENT MODE VENT - A/C; BG VENT RATE 10 set
[2017-11-04 07:23] LABS: PLATELET ESTIMATE DECREASED
[2017-11-04] MEDS ORDERED: METHYLPREDNISOLONE SOD SUCC 40 MG/ML VIAL IV SCH (09:00)
[2017-11-04] MEDS: DOCUSATE SODIUM SUGAR FREE 100MG/10ML UDC NG SCH (09:11)
[2017-11-04] MEDS: AMIODARONE HCL 200 MG TABLET PO SCH (09:12)
[2017-11-04] MEDS: MIDODRINE HCL 5MG TABLET PO SCH ×3 (09:13→18:32)
[2017-11-04] MEDS: PREDNISOLONE ACETATE 1% OPHTH DROPS 1ML BOTHEYE SCH ×3 (12:23→18:30)
[2017-11-04] MEDS: DORZOLAMIDE 2% OPHTH 10 ML BOTTLE BOTHEYE SCH ×3 (12:24→18:30)
[2017-11-04] MEDS: NOREPINEPHRINE 8 MG in DEXT 5% WATER 242 ML IV PRN (13:27)
[2017-11-04] MEDS ORDERED: VANCOMYCIN 750 MG PREMIX 150 ML IV SCH (14:00)
[2017-11-04] MEDS: MONTELUKAST SODIUM 10MG TABLET PO SCH (21:14)
[2017-11-04] MEDS: ATORVASTATIN CALCIUM 10MG TABLET PO SCH (21:14)
[2017-11-04] MEDS: FAMOTIDINE 20MG TABLET PO SCH (21:14)
[2017-11-05] VITALS (90 sets, daily range): BP systolic 84–148; BP diastolic 44–86
[2017-11-05] MEDS: NOREPINEPHRINE 8 MG in DEXT 5% WATER 242 ML IV PRN (00:11)
[2017-11-05] MEDS: BLOOD SUGAR DIAGNOSTIC STRIP TEST SCH ×4 (00:14→17:18)
[2017-11-05] MEDS: INSULIN LISPRO 100 UNITS/ML SUBCUT SCH ×4 (00:19→17:18)
[2017-11-05] MEDS: IPRATROPIUM/ALBUTEROL 0.5-3(2.5)MG/3ML NEB HHN SCH ×4 (02:22→20:15)
[2017-11-05] MEDS: FENTANYL CITRATE/PF 500 MCG in SODIUM CHLORIDE 0.9% 40 ML IV PRN ×2 (06:03→17:22)
[2017-11-05] MEDS: LEVOTHYROXINE SODIUM 50MCG TABLET PO SCH (06:09)
[2017-11-05 06:10] LABS: HEMATOCRIT. 33.7 % (36.0-48.0); HEMOGLOBIN. 11.2 g/dL (12.0-16.0); MEAN CORPUSCULAR HEMOGLOBIN 31.8 pg (28.0-32.0); MEAN CORPUSCULAR VOLUME 95.6 fL (81.0-99.0); MEAN PLATELET VOLUME 10.6 fl (7.4-10.4); PLATELET 99 x1000/uL (130-400); RED BLOOD CELL COUNT 3.52 mill/uL (4.2-5.4); RED CELL DISTRIBUTION WIDTH 20.5 % (11.6-14.6)
[2017-11-05 07:57] LABS: BG CARBOXYHEMOGLOBIN 0.2 % (0.5-1.5); BG FRACTION INSPIRED OXYGEN 50; BG HCO3 ACT 22.2 mmol/L (22.0-26.0); BG METHEMOGLOBIN 0.3 % (0.0-1.5); BG OXYHEMOGLOBIN 97.5 % (94.0-97.0); BG PCO2 32.2 mmHg (35.0-45.0); BG PH 7.457 (7.350-7.450); BG PO2 103.3 mmHg (75.0-100.0); BG SAMPLE SITE RIGHT BRACHIAL; BG TIDAL VOLUME(mL) 450 mL; BG TOTAL HEMOGLOBIN 11.3 g/dL (12.0-18.0); BG VENT MODE VENT - A/C; BG VENT RATE 10 set
[2017-11-05] MEDS: DOCUSATE SODIUM SUGAR FREE 100MG/10ML UDC NG SCH (09:56)
[2017-11-05] MEDS: DORZOLAMIDE 2% OPHTH 10 ML BOTTLE BOTHEYE SCH ×3 (09:56→17:21)
[2017-11-05] MEDS: PREDNISOLONE ACETATE 1% OPHTH DROPS 1ML BOTHEYE SCH ×3 (09:56→17:21)
[2017-11-05] MEDS: AMIODARONE HCL 200 MG TABLET PO SCH (09:56)
[2017-11-05] MEDS: MIDODRINE HCL 5MG TABLET PO SCH ×3 (09:56→17:21)
[2017-11-05] MEDS ORDERED: INSULIN GLARGINE UD 100 UNITS/ML SYR SUBCUT SCH ×2 (10:00)
[2017-11-05] MEDS: INSULIN GLARGINE UD 100 UNITS/ML SYR SUBCUT SCH (10:42)
[2017-11-05 13:32] LABS: PLATELET ESTIMATE DECREASED
[2017-11-05] MEDS: FAMOTIDINE 20MG TABLET PO SCH (22:59)
[2017-11-05] MEDS: ATORVASTATIN CALCIUM 10MG TABLET PO SCH (22:59)
[2017-11-05] MEDS: MONTELUKAST SODIUM 10MG TABLET PO SCH (22:59)
[2017-11-06] VITALS (95 sets, daily range): BP systolic 83–162; BP diastolic 48–96
[2017-11-06] MEDS: BLOOD SUGAR DIAGNOSTIC STRIP TEST SCH ×4 (00:22→17:49)
[2017-11-06] MEDS: IPRATROPIUM/ALBUTEROL 0.5-3(2.5)MG/3ML NEB HHN SCH ×4 (01:44→20:00)
[2017-11-06] MEDS: INSULIN LISPRO 100 UNITS/ML SUBCUT SCH ×4 (06:00→17:49)
[2017-11-06] MEDS: LEVOTHYROXINE SODIUM 50MCG TABLET PO SCH (06:15)
[2017-11-06] MEDS: DEXTROSE 50% WATER 50ML SYRINGE IV PRN (06:16)
[2017-11-06] MEDS: FENTANYL CITRATE/PF 500 MCG in SODIUM CHLORIDE 0.9% 40 ML IV PRN ×2 (06:27→21:24)
[2017-11-06 08:27] LABS: BG BASE EXCESS -0.3 mmol/L (-2.0-2.0); BG CARBOXYHEMOGLOBIN 0.7 % (0.5-1.5); BG DEOXYHEMOGLOBIN 1.5 % (0.0-5.0); BG FRACTION INSPIRED OXYGEN 50; BG HCO3 ACT 23.2 mmol/L (22.0-26.0); BG METHEMOGLOBIN 0.3 % (0.0-1.5); BG OXYGEN SATURATION 98.5 % (92.0-98.5); BG OXYHEMOGLOBIN 97.5 % (94.0-97.0); BG PCO2 34.3 mmHg (35.0-45.0); BG PH 7.448 (7.350-7.450); BG PO2 117.3 mmHg (75.0-100.0); BG SAMPLE SITE RIGHT BRACHIAL; BG TIDAL VOLUME(mL) 450 mL; BG TOTAL HEMOGLOBIN 12.8 g/dL (12.0-18.0); BG VENT MODE VENT - A/C; BG VENT RATE 10 set
[2017-11-06] MEDS: DOCUSATE SODIUM SUGAR FREE 100MG/10ML UDC NG SCH (09:26)
[2017-11-06] MEDS: DORZOLAMIDE 2% OPHTH 10 ML BOTTLE BOTHEYE SCH ×3 (09:27→17:48)
[2017-11-06] MEDS: PREDNISOLONE ACETATE 1% OPHTH DROPS 1ML BOTHEYE SCH ×3 (09:27→17:48)
[2017-11-06] MEDS: INSULIN GLARGINE UD 100 UNITS/ML SYR SUBCUT SCH (09:28)
[2017-11-06] MEDS: AMIODARONE HCL 200 MG TABLET PO SCH (09:29)
[2017-11-06] MEDS: MIDODRINE HCL 5MG TABLET PO SCH ×3 (09:29→17:48)
[2017-11-06] MEDS: EPOETIN ALFA 10000UNITS/ML VIAL SUBCUT SCH (09:35)
[2017-11-06] MEDS: NOREPINEPHRINE 8 MG in DEXT 5% WATER 242 ML IV PRN (09:39)
[2017-11-06] MEDS: FAMOTIDINE 20MG TABLET PO SCH (21:24)
[2017-11-06] MEDS: MONTELUKAST SODIUM 10MG TABLET PO SCH (21:24)
[2017-11-06] MEDS: ATORVASTATIN CALCIUM 10MG TABLET PO SCH (21:24)
[2017-11-07] VITALS (91 sets, daily range): BP systolic 84–142; BP diastolic 47–77
[2017-11-07] MEDS: BLOOD SUGAR DIAGNOSTIC STRIP TEST SCH ×4 (00:08→17:01)
[2017-11-07] MEDS: IPRATROPIUM/ALBUTEROL 0.5-3(2.5)MG/3ML NEB HHN SCH ×4 (01:59→20:33)
[2017-11-07] MEDS: LEVOTHYROXINE SODIUM 50MCG TABLET PO SCH (05:45)
[2017-11-07] MEDS: INSULIN LISPRO 100 UNITS/ML SUBCUT SCH ×4 (05:45→17:01)
[2017-11-07 06:29] LABS: HEMATOCRIT. 29.4 % (36.0-48.0); HEMOGLOBIN. 10.1 g/dL (12.0-16.0); MEAN CORPUSCULAR HEMOGLOBIN 32.8 pg (28.0-32.0); MEAN CORPUSCULAR VOLUME 95.1 fL (81.0-99.0); MEAN PLATELET VOLUME 10.8 fl (7.4-10.4); PLATELET 76 x1000/uL (130-400); RED BLOOD CELL COUNT 3.09 mill/uL (4.2-5.4); RED CELL DISTRIBUTION WIDTH 19.7 % (11.6-14.6)
[2017-11-07] MEDS: FENTANYL CITRATE/PF 500 MCG in SODIUM CHLORIDE 0.9% 40 ML IV PRN (08:23)
[2017-11-07 08:55] LABS: BG BASE EXCESS -0.9 mmol/L (-2.0-2.0); BG CARBOXYHEMOGLOBIN 0.3 % (0.5-1.5); BG DEOXYHEMOGLOBIN 2.1 % (0.0-5.0); BG FRACTION INSPIRED OXYGEN 50; BG HCO3 ACT 22.7 mmol/L (22.0-26.0); BG METHEMOGLOBIN 0.3 % (0.0-1.5); BG OXYGEN SATURATION 97.9 % (92.0-98.5); BG OXYHEMOGLOBIN 97.3 % (94.0-97.0); BG PCO2 33.2 mmHg (35.0-45.0); BG PH 7.452 (7.350-7.450); BG PO2 106.5 mmHg (75.0-100.0); BG SAMPLE SITE LEFT BRACHIAL; BG TIDAL VOLUME(mL) 450 mL; BG TOTAL HEMOGLOBIN 9.8 g/dL (12.0-18.0); BG VENT MODE VENT - A/C; BG VENT RATE 10 set
[2017-11-07] MEDS: DOCUSATE SODIUM SUGAR FREE 100MG/10ML UDC NG SCH (10:02)
[2017-11-07] MEDS: PREDNISOLONE ACETATE 1% OPHTH DROPS 1ML BOTHEYE SCH ×3 (10:02→17:35)
[2017-11-07] MEDS: DORZOLAMIDE 2% OPHTH 10 ML BOTTLE BOTHEYE SCH ×3 (10:02→17:35)
[2017-11-07] MEDS: MIDODRINE HCL 5MG TABLET PO SCH ×3 (10:03→17:35)
[2017-11-07] MEDS: AMIODARONE HCL 200 MG TABLET PO SCH (10:03)
[2017-11-07] MEDS: INSULIN GLARGINE UD 100 UNITS/ML SYR SUBCUT SCH (10:04)
[2017-11-07] MEDS: NOREPINEPHRINE 8 MG in DEXT 5% WATER 242 ML IV PRN (10:05)
[2017-11-07 10:46] LABS: PLATELET ESTIMATE DECREASED
[2017-11-07] MEDS ORDERED: FENTANYL CITRATE/PF 500 MCG in SODIUM CHLORIDE 0.9% 40 ML IV PRN (14:35)
[2017-11-07] MEDS ORDERED: VANCOMYCIN 750 MG PREMIX 150 ML IV SCH (15:00)
[2017-11-07] MEDS: MONTELUKAST SODIUM 10MG TABLET PO SCH (20:32)
[2017-11-07] MEDS: FAMOTIDINE 20MG TABLET PO SCH (20:32)
[2017-11-07] MEDS: ATORVASTATIN CALCIUM 10MG TABLET PO SCH (20:32)
[2017-11-08] VITALS (88 sets, daily range): BP systolic 80–143; BP diastolic 47–97
[2017-11-08] MEDS: INSULIN LISPRO 100 UNITS/ML SUBCUT SCH ×4 (00:10→18:00)
[2017-11-08] MEDS: BLOOD SUGAR DIAGNOSTIC STRIP TEST SCH ×4 (00:10→18:28)
[2017-11-08] MEDS: IPRATROPIUM/ALBUTEROL 0.5-3(2.5)MG/3ML NEB HHN SCH ×4 (02:20→20:01)
[2017-11-08] MEDS: FENTANYL CITRATE/PF 500 MCG in SODIUM CHLORIDE 0.9% 40 ML IV PRN ×3 (03:31→18:20)
[2017-11-08] MEDS: NOREPINEPHRINE 8 MG in DEXT 5% WATER 242 ML IV PRN ×2 (05:12→18:21)
[2017-11-08] MEDS: LEVOTHYROXINE SODIUM 50MCG TABLET PO SCH (05:12)
[2017-11-08] MEDS: DOCUSATE SODIUM SUGAR FREE 100MG/10ML UDC NG SCH (08:02)
[2017-11-08] MEDS: MIDODRINE HCL 5MG TABLET PO SCH ×3 (08:03→17:34)
[2017-11-08] MEDS: AMIODARONE HCL 200 MG TABLET PO SCH (08:03)
[2017-11-08] MEDS: PREDNISOLONE ACETATE 1% OPHTH DROPS 1ML BOTHEYE SCH ×3 (08:05→17:34)
[2017-11-08] MEDS: DORZOLAMIDE 2% OPHTH 10 ML BOTTLE BOTHEYE SCH ×3 (08:10→17:41)
[2017-11-08] MEDS: INSULIN GLARGINE UD 100 UNITS/ML SYR SUBCUT SCH (10:00)
[2017-11-08] MEDS ORDERED: NYSTATIN POWDER 15GM TOP SCH (13:00)
[2017-11-08] MEDS: FAMOTIDINE 20MG TABLET PO SCH (21:40)
[2017-11-08] MEDS: MONTELUKAST SODIUM 10MG TABLET PO SCH (21:40)
[2017-11-08] MEDS: ATORVASTATIN CALCIUM 10MG TABLET PO SCH (21:40)
[2017-11-09] VITALS (41 sets, daily range): BP systolic 80–143; BP diastolic 49–79
[2017-11-09] MEDS: FENTANYL CITRATE/PF 500 MCG in SODIUM CHLORIDE 0.9% 40 ML IV PRN ×2 (00:09→06:19)
[2017-11-09] MEDS: BLOOD SUGAR DIAGNOSTIC STRIP TEST SCH ×2 (00:10→06:01)
[2017-11-09] MEDS: IPRATROPIUM/ALBUTEROL 0.5-3(2.5)MG/3ML NEB HHN SCH (01:50)
[2017-11-09] MEDS: INSULIN LISPRO 100 UNITS/ML SUBCUT SCH ×2 (06:00)
[2017-11-09] MEDS: LEVOTHYROXINE SODIUM 50MCG TABLET PO SCH (06:19)
[2017-11-09] MEDS ORDERED: MORPHINE SULFATE 250 MG in DEXT 5% WATER 240 ML IV PRN (08:30)
[2017-11-09] MEDS ORDERED: LORAZEPAM 2MG/ML CPJ IV PRN (10:00)
== END 2017-11-09 12:48 | disposition expired | DRG 130 ==
LOC: ER 12:34 → 7WST 15:23 → ENRESERV 16:29 → MICUSO 10-22 10:12
PROVIDERS: ADMIT Internal Medicine Nephrology; ATTEND Internal Medicine Nephrology
PROC: 5A1D70Z Performance of Urinary Filtration, Intermittent, Less than 6 Hours Per Day (ICD-10-PCS; 2017-10-15)
PROC: 5A1D70Z Performance of Urinary Filtration, Intermittent, Less than 6 Hours Per Day (ICD-10-PCS; 2017-10-17)
PROC: 0W993ZZ Drainage of Right Pleural Cavity, Percutaneous Approach (ICD-10-PCS; 2017-10-19)
PROC: 5A1D70Z Performance of Urinary Filtration, Intermittent, Less than 6 Hours Per Day (ICD-10-PCS; 2017-10-20)
PROC: 30233N1 Transfusion of Nonautologous Red Blood Cells into Peripheral Vein, Percutaneous Approach (ICD-10-PCS; 2017-10-21)
PROC: 5A1D70Z Performance of Urinary Filtration, Intermittent, Less than 6 Hours Per Day (ICD-10-PCS; 2017-10-21)
PROC: 02HV33Z Insertion of Infusion Device into Superior Vena Cava, Percutaneous Approach (ICD-10-PCS; 2017-10-22)
PROC: B548ZZA Ultrasonography of Superior Vena Cava, Guidance (ICD-10-PCS; 2017-10-22)
PROC: 5A09357 Assistance with Respiratory Ventilation, Less than 24 Consecutive Hours, Continuous Positive Airway Pressure (ICD-10-PCS; 2017-10-22)
PROC: 5A1D70Z Performance of Urinary Filtration, Intermittent, Less than 6 Hours Per Day (ICD-10-PCS; 2017-10-22)
PROC: 5A1955Z Respiratory Ventilation, Greater than 96 Consecutive Hours (ICD-10-PCS; principal; 2017-10-23)
PROC: 0W993ZZ Drainage of Right Pleural Cavity, Percutaneous Approach (ICD-10-PCS; 2017-10-23)
PROC: 0BH17EZ Insertion of Endotracheal Airway into Trachea, Via Natural or Artificial Opening (ICD-10-PCS; 2017-10-23)
PROC: 5A12012 Performance of Cardiac Output, Single, Manual (ICD-10-PCS; 2017-10-23)
PROC: 0W9900Z Drainage of Right Pleural Cavity with Drainage Device, Open Approach (ICD-10-PCS; 2017-10-23)
PROC: 5A1D70Z Performance of Urinary Filtration, Intermittent, Less than 6 Hours Per Day (ICD-10-PCS; 2017-10-25)
PROC: 5A1D70Z Performance of Urinary Filtration, Intermittent, Less than 6 Hours Per Day (ICD-10-PCS; 2017-10-27)
PROC: 0BH17EZ Insertion of Endotracheal Airway into Trachea, Via Natural or Artificial Opening (ICD-10-PCS; 2017-10-28)
PROC: 5A1955Z Respiratory Ventilation, Greater than 96 Consecutive Hours (ICD-10-PCS; 2017-10-28)
PROC: 5A1D70Z Performance of Urinary Filtration, Intermittent, Less than 6 Hours Per Day (ICD-10-PCS; 2017-10-28)
PROC: 05HY33Z Insertion of Infusion Device into Upper Vein, Percutaneous Approach (ICD-10-PCS; 2017-10-30)
PROC: B543ZZA Ultrasonography of Right Jugular Veins, Guidance (ICD-10-PCS; 2017-10-30)
PROC: 5A1D70Z Performance of Urinary Filtration, Intermittent, Less than 6 Hours Per Day (ICD-10-PCS; 2017-10-30)
PROC: 5A1D70Z Performance of Urinary Filtration, Intermittent, Less than 6 Hours Per Day (ICD-10-PCS; 2017-10-31)
PROC: 0BH17EZ Insertion of Endotracheal Airway into Trachea, Via Natural or Artificial Opening (ICD-10-PCS; 2017-11-01)
PROC: 5A1955Z Respiratory Ventilation, Greater than 96 Consecutive Hours (ICD-10-PCS; 2017-11-01)
PROC: 5A1D70Z Performance of Urinary Filtration, Intermittent, Less than 6 Hours Per Day (ICD-10-PCS; 2017-11-02)
PROC: 5A1D70Z Performance of Urinary Filtration, Intermittent, Less than 6 Hours Per Day (ICD-10-PCS; 2017-11-04)
PROC: 5A1D70Z Performance of Urinary Filtration, Intermittent, Less than 6 Hours Per Day (ICD-10-PCS; 2017-11-06)
DX: J96.01 Acute respiratory failure with hypoxia (principal); R65.21 Severe sepsis with septic shock; E43 Unspecified severe protein-calorie malnutrition; I13.2 Hypertensive heart and chronic kidney disease with heart failure and with stage 5 chronic kidney disease, or end stage renal disease; A41.9 Sepsis, unspecified organism; J90 Pleural effusion, not elsewhere classified; I82.402 Acute embolism and thrombosis of unspecified deep veins of left lower extremity; J18.1 Lobar pneumonia, unspecified organism; I95.3 Hypotension of hemodialysis; I46.9 Cardiac arrest, cause unspecified; D69.6 Thrombocytopenia, unspecified; E11.22 Type 2 diabetes mellitus with diabetic chronic kidney disease; E11.52 Type 2 diabetes mellitus with diabetic peripheral angiopathy with gangrene; E11.65 Type 2 diabetes mellitus with hyperglycemia; I27.20 Pulmonary hypertension, unspecified; N18.6 End stage renal disease; D63.1 Anemia in chronic kidney disease; I50.9 Heart failure, unspecified; K21.9 Gastro-esophageal reflux disease without esophagitis; R00.1 Bradycardia, unspecified; Z99.2 Dependence on renal dialysis; J93.9 Pneumothorax, unspecified; E03.9 Hypothyroidism, unspecified; E87.5 Hyperkalemia; E87.6 Hypokalemia; E78.00 Pure hypercholesterolemia, unspecified; J45.909 Unspecified asthma, uncomplicated; I08.1 Rheumatic disorders of both mitral and tricuspid valves; E11.621 Type 2 diabetes mellitus with foot ulcer; L97.529 Non-pressure chronic ulcer of other part of left foot with unspecified severity; R62.7 Adult failure to thrive; L89.629 Pressure ulcer of left heel, unspecified stage; Z66 Do not resuscitate; E11.40 Type 2 diabetes mellitus with diabetic neuropathy, unspecified; I47.1 Supraventricular tachycardia; T82.898A Other specified complication of vascular prosthetic devices, implants and grafts, initial encounter; Y83.2 Surgical operation with anastomosis, bypass or graft as the cause of abnormal reaction of the patient, or of later complication, without mention of misadventure at the time of the procedure; Y92.238 Other place in hospital as the place of occurrence of the external cause; Z87.81 Personal history of (healed) traumatic fracture; Z68.23 Body mass index [BMI] 23.0-23.9, adult; Z22.322 Carrier or suspected carrier of Methicillin resistant Staphylococcus aureus; Z89.422 Acquired absence of other left toe(s); Z78.1 Physical restraint status
CPT/HCPCS: 31500; 32555; 36415; 36569; 36600; 70450; 71045; 71250; 75635; 76937; 80048; 80051; 80053; 80202; 82140; 82375; 82550; 82553; 82805; 82962; 83540; 83550; 83735; 83880; 84100; 84443; 84478; 84484; 85014; 85018; 85025; 85379; 85610; 86850; 86900; 86920; 87040; 87070; 87077; 87186; 87205; 93005; 93306; 93880; 93923; 93970; 94002; 94003; 94640; 94660; 96365; 96375; 99285; A4216; A6261; C1725; C1752; J0330; J0461; J0713; J0885; J1644; J1815; J1940; J1956; J2060; J2250; J2370; J2405; J2704; J2920; J2930; J3010; J3370; J3480; J3490; J7030; J7040; J7050; J7060; J7608; J7620; P9016; P9047; Q9967